=== PATIENT | male | born 1970 | race Caucasian/White ===

== ENCOUNTER → 2016-12-16 | Outpatient (CLI) | payer SELFPAY ==
--- NOTE | 2016-12-16 18:30 | US ---
EXAMINATION TYPE: US venous doppler duplex LE RT DATE OF EXAM: 12/16/2016 6:24 PM COMPARISON: NONE CLINICAL HISTORY: Lower Ext Pain and Swelling R22.41. Rt leg pain and swelling SIDE PERFORMED: Right VESSELS IMAGED: External Iliac Vein (EIV) Common Femoral Vein Deep Femoral Vein Greater Saphenous Vein * Femoral Vein Popliteal Vein Small Saphenous Vein * Proximal Calf Veins (* superficial vessels) No popliteal fossa lesion is seen. TECHNOLOGIST IMPRESSION: wnl Right Leg: Negative for DVT Results called to Salvador OLIVO at 's office at time of exam IMPRESSION: THIS EXAMINATION IS NEGATIVE FOR DVT WITHIN THE RIGHT LEG.
== END | disposition home or self-care (01) ==
LOC: RADUSMAIN 17:57
PROVIDERS: ATTEND Orthopaedic Surgery
DX: M79.661 Pain in right lower leg (principal); M79.89 Other specified soft tissue disorders

== ENCOUNTER 2018-12-16 15:15 | Emergency (ER) | payer BC ==
[2018-12-16] MEDS ORDERED: MORPHINE SULFATE 4 MG/ML SYRINGE IV STA (15:59)
[2018-12-16] MEDS ORDERED: ONDANSETRON ODT 8 MG TAB.RAPDIS PO STA (15:59)
[2018-12-16] MEDS ORDERED: SODIUM CHLORIDE 0.9% 1,000 ML IV STA ×2 (15:59→16:38)
[2018-12-16] MEDS ORDERED: ONDANSETRON 4 MG/2 ML VIAL IVP STA (16:03)
[2018-12-16 16:28] LABS: Basophils % (A) 0 %; Eosinophils # (A) 0.1 k/uL (0-0.7); Eosinophils % (A) 1 %; HCT 43.7 % (39.0-53.0); HGB 14.2 gm/dL (13.0-17.5); Lymphocytes % (A) 7 %; MCHC 32.4 g/dL (31.0-37.0); MCV 89.4 fL (80.0-100.0); Mean Platelet Volume 7.9; Monocytes # (A) 0.6 k/uL (0-1.0); Monocytes % (A) 4 %; Neutrophils # (A) 14.1 k/uL (1.3-7.7); Neutrophils % (A) 88 %; Platelet Count 256 k/uL (150-450); RBC 4.89 m/uL (4.30-5.90); RDW 12.8 % (11.5-15.5)
[2018-12-16 16:32] LABS: Appearance,Urine Turbid (Clear); Bacteria,Urine Rare /hpf; Bilirubin,Urine Negative (Negative); Blood,Urine Large (Negative); Budding Yeast,Urine Few /hpf; Color,Urine Dark Brown; Glucose,Urine (UA) Negative (Negative); Ketones,Urine 1+ (Negative); Leukocyte Esterase,Urine Small (Negative); Mucus,Urine Many /hpf; Nitrite,Urine Negative (Negative); PH, Urine 5.5 (5.0-8.0); Protein,Urine 2+ (Negative); RBC,Urine >182 /hpf (0-5); Specific Gravity,Urine 1.022 (1.001-1.035); Urobilinogen,Urine <2.0 mg/dL (<2.0); WBC,Urine 101 /hpf (0-5)
[2018-12-16 16:37] LABS: Albumin 4.3 g/dL (3.5-5.0); Calcium 9.7 mg/dL (8.4-10.2); Potassium 4.1 mmol/L (3.5-5.1); Total Bilirubin 1.6 mg/dL (0.2-1.3); Total Protein 7.6 g/dL (6.3-8.2)
[2018-12-16] MEDS ORDERED: cefTRIAXone 2,000 MG in SODIUM CHLORIDE 0.9% 100 ML IVPB STA (17:28)
--- NOTE | 2018-12-16 17:41 | ED ---
General Adult HPI - General Source: patient, RN notes reviewed Mode of arrival: ambulatory Limitations: no limitations <Imtiaz Morales - Last Filed: 12/16/18 19:28> <Joseph Peterson - Last Filed: 12/16/18 21:01> - General Chief complaint: Abdominal Pain Stated complaint: Lt flank pain Time Seen by Provider: 12/16/18 15:33 - History of Present Illness Initial comments: 48-year-old male with a past medical history of GERD presents to the emergency department for a chief complaint of left flank and abdominal pain 2 days. Patient states he initially thought he had the stomach flu as he has been nauseous and had diarrhea for about 4 days. Patient states he vomited once 4 days ago but has not vomited since. Patient states he now has left flank and left abdominal pain. He states he noticed blood in his urine earlier today. He denies any fevers at home but does admit to chills. He denies any history of kidney stones. He does admit to history of diverticulitis. Patient has no other complaints at this time including shortness of breath, chest pain, headache, or visual changes. (Imtiaz Morales) - Related Data Home Medications Medication Instructions Recorded Confirmed Esomeprazole Magnesium [Nexium 20 mg PO DAILY 11/02/16 12/16/18 24Hr] Acetaminophen Tab [Tylenol] 650 mg PO Q8H 12/16/18 12/16/18 Cyanocobalamin [Vitamin B-12] 500 mcg PO DAILY 12/16/18 12/16/18 Multivitamins, Thera [Multivitamin 1 tab PO DAILY 12/16/18 12/16/18 (formulary)] Previous Rx's Medication Instructions Recorded HYDROcodone/APAP 5-325MG [[place] 1 tab PO Q6HR PRN #12 tab 12/16/18 5-325] Ibuprofen [Motrin] 600 mg PO Q6HR PRN #20 tab 12/16/18 Levofloxacin [Levaquin] 500 mg PO DAILY 5 Days tab 12/16/18 Ondansetron [Zofran ODT] 4 mg PO Q8HR PRN #15 tab 12/16/18 Tamsulosin [Flomax] 0.4 mg PO DAILY #20 cap 12/16/18 Allergies Allergy/AdvReac Type Severity Reaction Status Date / Time No Known Allergies Allergy Verified 12/16/18 16:50 Review of Systems ROS Other: All systems not noted in ROS Statement are negative. <Imtiaz Morales P - Last Filed: 12/16/18 19:28> ROS Other: All systems not noted in ROS Statement are negative. <Joseph Peterson Joel - Last Filed: 12/16/18 21:01> ROS Statement: Those systems with pertinent positive or pertinent negative responses have been documented in the HPI. Past Medical History Past Medical History: GERD/Reflux History of Any Multi-Drug Resistant Organisms: None Reported Past Surgical History: Back Surgery Additional Past Surgical History / Comment(s): LUMBAR FUSION Past Psychological History: No Psychological Hx Reported Smoking Status: Never smoker Past Alcohol Use History: Occasional Past Drug Use History: None Reported <Imtiaz Morales P - Last Filed: 12/16/18 19:28> General Exam Limitations: no limitations General appearance: alert, in no apparent distress Head exam: Present: atraumatic, normocephalic, normal inspection Eye exam: Present: normal appearance, PERRL, EOMI. Absent: scleral icterus, conjunctival injection, periorbital swelling ENT exam: Present: normal exam, mucous membranes moist Neck exam: Present: normal inspection, full ROM. Absent: tenderness, meningismus, lymphadenopathy Respiratory exam: Present: normal lung sounds bilaterally. Absent: respiratory distress, wheezes, rales, rhonchi, stridor Cardiovascular Exam: Present: regular rate, normal rhythm, normal heart sounds. Absent: systolic murmur, diastolic murmur, rubs, gallop, clicks GI/Abdominal exam: Present: soft, tenderness (Tenderness to the left upper and lower quadrants with guarding present, no rebound. No tenderness in the right upper or lower quadrants.), guarding, normal bowel sounds. Absent: distended, rebound, rigid Neurological exam: Present: alert, oriented X3, CN II-XII intact Psychiatric exam: Present: normal affect, normal mood <Imtiaz Morales P - Last Filed: 12/16/18 19:28> Vital Signs 12/16/18 12/16/18 12/16/18 15:27 18:21 19:56 Temperature 97.4 F L 98.0 F Pulse Rate 76 70 61 Respiratory 16 18 18 Rate Blood Pressure 145/93 135/94 124/89 O2 Sat by Pulse 98 97 98 Oximetry Medical Decision Making - Lab Data Result diagrams: 12/16/18 16:09 12/16/18 16:09 <Imtiaz Morales - Last Filed: 12/16/18 19:28> - Lab Data Result diagrams: 12/16/18 16:09 12/16/18 16:09 <Joseph Peterson - Last Filed: 12/16/18 21:01> - Medical Decision Making 48-year-old male presents to the emergency department for a chief complaint of left flank and abdominal pain. Patient also complaining of hematuria. On exam patient does have tenderness noted of the left upper and lower quadrants as well as left CVA tenderness. Vitals within acceptable limits, patient is afebrile. CBC does show a white count of 16. Creatinine 1.27, patient given fluids. Urine does show over 182 red blood cells as well as 101 white blood cells. This was cultured. Patient was started on 2 g of Rocephin and 2 L of normal saline. CT did show a 5 mm obstructing calculus at the left UVJ with mild left-sided hydronephrosis. No diverticulitis or appendicitis. Discussed with patient that this is potentially something we could keep him in the hospital for IV antibiotics for however patient prefers to go home. At this time Dr. Peterson spoke with Dr. Duval who agrees for discharge home with Levaquin. Patient will follow-up with Dr. Duval tomorrow and strain his urine. Strict return parameters were discussed with this patient including fevers, chills, worsening pain, vomiting, or any other concerning symptoms ( Imtiaz Morales) Patient with hematuria, obstructing renal calculus. Patient evaluated, resting comfortably, vital signs stable, afebrile. He does have white blood cell count at 16. Urinalysis is significant for gross hematuria. Culture is obtained. Patient given IV antibiotics in the emergency department. He is given IV fluids and pain control. Reevaluation resting comfortably, no significant pain. I discussed the case with Dr. Duval, recommends fluoroquinolone, urine culture, and will see the patient as an outpatient. Patient will be present with nausea vomiting, fever, worsening pain. (Joseph Peterson) - Lab Data Lab Results 12/16/18 12/16/18 12/16/18 Range/Units 16:03 16:09 16:09 WBC 16.0 H (3.8-10.6) k/uL RBC 4.89 (4.30-5.90) m/uL Hgb 14.2 (13.0-17.5) gm/dL Hct 43.7 (39.0-53.0) % MCV 89.4 (80.0-100.0) fL MCH 29.0 (25.0-35.0) pg MCHC 32.4 (31.0-37.0) g/dL RDW 12.8 (11.5-15.5) % Plt Count 256 (150-450) k/uL Neutrophils % 88 % Lymphocytes % 7 % Monocytes % 4 % Eosinophils % 1 % Basophils % 0 % Neutrophils # 14.1 H (1.3-7.7) k/uL Lymphocytes # 1.0 (1.0-4.8) k/uL Monocytes # 0.6 (0-1.0) k/uL Eosinophils # 0.1 (0-0.7) k/uL Basophils # 0.0 (0-0.2) k/uL Sodium 136 L (137-145) mmol/L Potassium 4.1 (3.5-5.1) mmol/L Chloride 101 (98-107) mmol/L Carbon Dioxide 23 (22-30) mmol/L Anion Gap 12 mmol/L BUN 26 H (9-20) mg/dL Creatinine 1.27 H (0.66-1.25) mg/dL Est GFR (CKD-EPI)AfAm 77 (>60 ml/min/1.73 sqM) Est GFR (CKD-EPI)NonAf 66 (>60 ml/min/1.73 sqM) Glucose 113 H (74-99) mg/dL Plasma Lactic Acid Jean-Pierre (0.7-2.0) mmol/L Calcium 9.7 (8.4-10.2) mg/dL Total Bilirubin 1.6 H (0.2-1.3) mg/dL AST 19 (17-59) U/L ALT 31 (21-72) U/L Alkaline Phosphatase 70 (38-126) U/L Total Protein 7.6 (6.3-8.2) g/dL Albumin 4.3 (3.5-5.0) g/dL Amylase 42 (30-110) U/L Lipase 48 (23-300) U/L Urine Color Dark Brown Urine Appearance Turbid (Clear) Urine pH 5.5 (5.0-8.0) Ur Specific Powell 1.022 (1.001-1.035) Urine Protein 2+ H (Negative) Urine Glucose (UA) Negative (Negative) Urine Ketones 1+ H (Negative) Urine Blood Large H (Negative) Urine Nitrite Negative (Negative) Urine Bilirubin Negative (Negative) Urine Urobilinogen <2.0 (<2.0) mg/dL Ur Leukocyte Esterase Small H (Negative) Urine RBC >182 H (0-5) /hpf Urine WBC 101 H (0-5) /hpf Urine Bacteria Rare H (None) /hpf Urine Mucus Many H (None) /hpf Urine Yeast (Budding) Few H (None) /hpf 12/16/18 Range/Units 18:07 WBC (3.8-10.6) k/uL RBC (4.30-5.90) m/uL Hgb (13.0-17.5) gm/dL Hct (39.0-53.0) % MCV (80.0-100.0) fL MCH (25.0-35.0) pg MCHC (31.0-37.0) g/dL RDW (11.5-15.5) % Plt Count (150-450) k/uL Neutrophils % % Lymphocytes % % Monocytes % % Eosinophils % % Basophils % % Neutrophils # (1.3-7.7) k/uL Lymphocytes # (1.0-4.8) k/uL Monocytes # (0-1.0) k/uL Eosinophils # (0-0.7) k/uL Basophils # (0-0.2) k/uL Sodium (137-145) mmol/L Potassium (3.5-5.1) mmol/L Chloride (98-107) mmol/L Carbon Dioxide (22-30) mmol/L Anion Gap mmol/L BUN (9-20) mg/dL Creatinine (0.66-1.25) mg/dL Est GFR (CKD-EPI)AfAm (>60 ml/min/1.73 sqM) Est GFR (CKD-EPI)NonAf (>60 ml/min/1.73 sqM) Glucose (74-99) mg/dL Plasma Lactic Acid Jean-Pierre 1.0 (0.7-2.0) mmol/L Calcium (8.4-10.2) mg/dL Total Bilirubin (0.2-1.3) mg/dL AST (17-59) U/L ALT (21-72) U/L Alkaline Phosphatase (38-126) U/L Total Protein (6.3-8.2) g/dL Albumin (3.5-5.0) g/dL Amylase (30-110) U/L Lipase (23-300) U/L Urine Color Urine Appearance (Clear) Urine pH (5.0-8.0) Ur Specific Powell (1.001-1.035) Urine Protein (Negative) Urine Glucose (UA) (Negative) Urine Ketones (Negative) Urine Blood (Negative) Urine Nitrite (Negative) Urine Bilirubin (Negative) Urine Urobilinogen (<2.0) mg/dL Ur Leukocyte Esterase (Negative) Urine RBC (0-5) /hpf Urine WBC (0-5) /hpf Urine Bacteria (None) /hpf Urine Mucus (None) /hpf Urine Yeast (Budding) (None) /hpf Disposition Is patient prescribed a controlled substance at d/c from ED?: Yes When asked, does pt state using other controlled substances?: No If prescribed controlled substance>3 days was MAPS reviewed?: Prescribed <3 Days If opioid is for acute pain is fill amount 7 days or less?: Yes If Rx opioid, was Start Talking consent form obtained?: Yes Time of Disposition: 19:34 <Imtiaz Morales P - Last Filed: 12/16/18 19:28> <Joseph Peterson - Last Filed: 12/16/18 21:01> Clinical Impression: Ureterolithiasis, Urinary tract infection Disposition: HOME SELF-CARE Condition: Good Instructions (If sedation given, give patient instructions): Kidney Stones (ED) , Urinary Tract Infection in Men (ED) Additional Instructions: Please take prescriptions as directed. Please follow-up with Dr. Duval tomorrow. Please strain the urine. Please return to the emergency department if you have any worsening symptoms such as fevers, vomiting, worsening pain or any other concerning symptoms. Prescriptions: HYDROcodone/APAP 5-325MG [[place] 5-325] 1 tab PO Q6HR PRN #12 tab PRN Reason: Pain Ibuprofen [Motrin] 600 mg PO Q6HR PRN #20 tab PRN Reason: Pain Levofloxacin [Levaquin] 500 mg PO DAILY 5 Days tab Ondansetron [Zofran ODT] 4 mg PO Q8HR PRN #15 tab PRN Reason: Nausea Tamsulosin [Flomax] 0.4 mg PO DAILY #20 cap Referrals: Ed Duval MD [STAFF PHYSICIAN] - 1-2 days
--- NOTE | 2018-12-16 18:08 | CT ---
EXAMINATION TYPE: CT abdomen pelvis w con DATE OF EXAM: 12/16/2018 COMPARISON: None HISTORY: Left side flank and abdominal pain. CT DLP: 1047.4 mGycm Automated exposure control for dose reduction was used. TECHNIQUE: Helical acquisition of images was performed from the lung bases through the pelvis. CONTRAST: Performed without Oral Contrast and with IV Contrast, patient injected with 100ml mL of Isovue 300. FINDINGS: There is some patchy airspace nodular and reticular infiltrate in the left lower lobe. There is moder ate size hiatal hernia. Heart size is normal. There is no pericardial effusion. There is no pleural e ffusion. The liver spleen pancreas gallbladder appear normal. Bile ducts are not dilated. There is no adrenal mass. Kidneys show satisfactory contrast opacification. There is left-sided hydro nephrosis and hydroureter. There is 5 mm obstructing calculus at the left ureteral vesicle junction. There is 6 mm calculus lateral left kidney. There is 1 cm cortical cyst lower pole left kidney. There is 2 cm cortical cyst anterior right kidney. There is no retroperitoneal adenopathy. There is no ascites. Appendix appears normal. There are numer ous diverticula in the sigmoid colon. There is no mesenteric edema. Latter distends smoothly. There i s prostatic calcification. There is no inguinal hernia. There is no free fluid in the pelvis. There i s no sign of free air. IMPRESSION: OBSTRUCTING CALCULUS AT THE LEFT URETEROVESICAL JUNCTION. MILD LEFT-SIDED HYDRONEPHROSIS. COLONIC DIV ERTICULOSIS WITHOUT DIVERTICULITIS. NORMAL APPENDIX.
[2018-12-16 18:22] VITALS: RESP 18
[2018-12-16] MEDS ORDERED: KETOROLAC 30 MG/ML 1 ML VIAL IVP STA (18:27)
--- NOTE | 2018-12-16 19:11 | XR ---
EXAMINATION TYPE: XR KUB DATE OF EXAM: 12/16/2018 COMPARISON: NONE HISTORY: Left flank pain TECHNIQUE: 2 views FINDINGS: There is no sign of intestinal obstruction or pneumoperitoneum. Fecal pattern is normal. Th ere is IV contrast in the left renal collecting system which is slightly dilated. There is posterior fusion surgery in the lower lumbar spine. There is no evidence of a mass. Lung bases appear clear of consolidation. IMPRESSION: Left-sided hydronephrosis and hydroureter unchanged compared to CT scan 2 hours ago.
[2018-12-16 19:57] VITALS: BP 124/89; PULSE 61; TEMP 98
== END 2018-12-16 19:57 | disposition home or self-care (01) ==
LOC: EC 15:15
DX: N13.2 Hydronephrosis with renal and ureteral calculous obstruction (principal); N39.0 Urinary tract infection, site not specified; K21.9 Gastro-esophageal reflux disease without esophagitis; Z79.899 Other long term (current) drug therapy; Z53.8 Procedure and treatment not carried out for other reasons
CPT/HCPCS: 36415; 80053; 82150; 83605; 83690; 85025; 81001; 87040; 87086; 74018; 74177; 99284; 96365; 96375 ×3; 96361 ×2; J2270; J2405; J0696; J1885; Q9967

== ENCOUNTER → 2021-09-29 | Outpatient (CLI) | payer BC ==
[2021-09-29 11:47] LABS: Basophils # (A) 0.1 k/uL (0-0.2); Basophils % (A) 1 %; Eosinophils # (A) 0.2 k/uL (0-0.7); Eosinophils % (A) 3 %; HCT 45.5 % (39.0-53.0); HGB 15.5 gm/dL (13.0-17.5); Lymphocytes # (A) 1.8 k/uL (1.0-4.8); Lymphocytes % (A) 23 %; MCH 31.8 pg (25.0-35.0); MCHC 34.1 g/dL (31.0-37.0); MCV 93.1 fL (80.0-100.0); Mean Platelet Volume 8.9; Monocytes # (A) 0.6 k/uL (0-1.0); Monocytes % (A) 7 %; Neutrophils # (A) 5.1 k/uL (1.3-7.7); Neutrophils % (A) 65 %; Platelet Count 279 k/uL (150-450); RBC 4.89 m/uL (4.30-5.90); RDW 12.5 % (11.5-15.5); WBC 7.8 k/uL (3.8-10.6)
== END | disposition home or self-care (01) ==
LOC: LABPAT 09:25
PROVIDERS: ATTEND Orthopaedic Surgery Hand Surgery
DX: Z01.818 Encounter for other preprocedural examination (principal); S46.299A Other injury of muscle, fascia and tendon of other parts of biceps, unspecified arm, initial encounter; R00.1 Bradycardia, unspecified; X58.XXXA Exposure to other specified factors, initial encounter
CPT/HCPCS: 36415; 80051; 85025; 93005

== ENCOUNTER 2021-10-01 09:55 | Day surgery (SDC) | payer BC, MEDICAID ==
[2021-09-30 09:45] VITALS: BMI 26.9
--- NOTE | 2021-09-30 22:09 | P.HPOR ---
History of Present Illness H&P Date: 09/30/21 Chief Complaint: Right distal biceps tendon tear Age: 51 year Height: 6'2" Weight: 210 lbs BMI: 26.96 kg/m2 Subjective: This is a 51 year old male that presents today for initial evaluation regarding a right elbow injury that occurred on 09-26-21. Patient was picking up a car part at home in his garage and felt a pop in the right arm and had immediate pain and swelling in the anterior portion of his elbow. He was recently seen in February for right distal biceps tendonitis and a MRI at that time revealed no evidence of complete tearing but inflammation around the insertion of the biceps tendon. He denies any prior injury to this extremity in the past. He has some occasional paresthesias in the volar, radial forearm since the incident but has no other complaints at this time. Physical Examination: RUE: AIN/PIN/Radial/Ulnar/Median motor intact. Radial/Ulnar/Median SILT. 2+/4 Radial/Ulnar pulses palpated. Sensation diminished in LABCN distribution with light touch. Positive hook test. TTP over antecubital fossa. Pain with resisted elbow flexion/supination. Imaging: X-Rays of the left elbow demonstrate no acute fracture/dislocation. Impression: 1.) Right distal biceps tendon avulsion Plan: Diagnosis and treatment options were discussed with the patient. On exam today he appears to have signs and symptoms of a right distal biceps tendon avulsion. Risks and benefits of operative vs non-operative treatment were discussed with the patient and he would like to proceed with surgical intervention. I explained he will likely be immobilized for roughly 2 weeks post operatively and PT will be initiated at that time with gradual advancement of active and passive ROM. The patient was agreeable with this plan of action. MRI will be ordered urgently to determine complete vs partial tearing and amount of retraction for surgical planning. Pre-operative labs and EKG will be ordered. We will plan for right distal biceps tendon avulsion repair. All questions were answered. -Gerber Otto DO Orthopedic Hand/Upper Extremity Surgeon Past Medical History Past Medical History: GERD/Reflux Additional Past Medical History / Comment(s): Hx kidney stones. History of Any Multi-Drug Resistant Organisms: None Reported Past Surgical History: Back Surgery, Orthopedic Surgery Additional Past Surgical History / Comment(s): LUMBAR FUSION, right shoulder arthroscopy, right knee arthroscopy. Past Anesthesia/Blood Transfusion Reactions: No Reported Reaction, Postoperative Nausea & Vomiting (PONV) Past Psychological History: No Psychological Hx Reported Smoking Status: Never smoker Past Alcohol Use History: Rare Past Drug Use History: Marijuana Additional Drug Use History / Comment(s): Occasional Marijuana use. Aware no use 24 hrs prior to procedure. - Past Family History Mother Family Medical History: No Reported History Medications and Allergies Home Medications Medication Instructions Recorded Confirmed Type Multivitamins, Thera [Multivitamin 1 tab PO DAILY 12/16/18 09/30/21 History (formulary)] Pantoprazole Sodium [Protonix] 40 mg PO QAM 03/29/19 09/30/21 History Acetaminophen [Tylenol] 1,000 mg PO DAILY 09/30/21 09/30/21 History Allergies Allergy/AdvReac Type Severity Reaction Status Date / Time No Known Allergies Allergy Verified 09/30/21 09:46 Physical Examination Osteopathic Statement: *. No significant issues noted on an osteopathic structural exam other than those noted in the History and Physical/Consult.
[~2021-10-01 09:55] MED LIST: DEXAMETHASONE SOD PHOSPHATE 4 MG/ML 1 ML VIAL IV ONE; HYDROmorphone 0.5 MG/0.5 ML SYRINGE IVP PRN; LACTATED RINGERS 1,000 ML IV SCH; LIDOCAINE 1% (10MG/ML) FOR IV START INTRADERMA PRN; MIDAZOLAM 2 MG/2 ML VIAL IV PRN; ONDANSETRON 4 MG/2 ML VIAL IVP ONE
[2021-10-01] MEDS ORDERED: MIDAZOLAM 2 MG/2 ML VIAL IVP ONE (12:08)
[2021-10-01] MEDS ORDERED: SUCCINYLCHOLINE CHLORIDE 100 MG/5 ML SYR IV ONE (12:53)
[2021-10-01] MEDS ORDERED: PROPOFOL 10 MG/ML 20 ML VIAL IV ONE (12:53)
[2021-10-01] MEDS ORDERED: fentaNYL (PF) 50 MCG/ML 2 ML AMP ONE (12:53)
[2021-10-01] MEDS ORDERED: LIDOCAINE 1% INJ 10MG/ML (20 ML MDV) ONE (12:53)
[2021-10-01] MEDS ORDERED: ROPIVACAINE 5 MG/ML 30 ML VIAL ONE (12:53)
[2021-10-01] MEDS ORDERED: SCOPOLAMINE 1.5MG/72HR PATCH TRANSDERM ONE (12:54)
--- NOTE | 2021-10-01 13:24 | P.ANPRN ---
Procedure Note - Anesthesia - Nerve Block Performed Right Supraclavicular Time Out Performed: Yes (12:00) Date of Procedure: 10/01/21 Procedure Start Time: 12:00 Procedure Stop Time: 12:13 Location of Patient: PreOp Indication: Acute Post-Operative Pain, Requested by Surgeon (Dr Otto) Sedation Type: Sedate with meaningful contact maintained Preparation: Sterile Prep Position: Supine Catheter: None Needle Types: Pajunk Needle Gauge: Other (see comment) (22g) Ultrasound used to visualize needle placement: Yes Ultrasound used to observe medication spread: Yes Injectate: 0.5% Ropivacaine (see comment for volume) (20cc) Blood Aspirated: No Pain Paresthesia on Injection Noted: No Resistance on Injection: Normal Image Stored and Saved: Yes Events: Uneventful and Well Tolerated
[2021-10-01] MEDS ORDERED: ceFAZolin 1,000 MG in SODIUM CHLORIDE 0.9% 1,000 ML IRRIGATION ONE (13:25)
[2021-10-01] MEDS ORDERED: LACTATED RINGERS 1,000 ML IV ONE (14:51)
[2021-10-01 15:06] VITALS: TEMP 97
[2021-10-01 15:44] VITALS: RESP 16
[2021-10-01 16:00] VITALS: PULSE 68
[2021-10-01 16:18] VITALS: BP 125/83
--- NOTE | 2021-10-01 19:50 | P.OP ---
Date of Procedure: 10/01/21 Preoperative Diagnosis: Right distal biceps tendon avulsion Postoperative Diagnosis: Right distal biceps tendon avulsion Procedure(s) Performed: 1.) Right distal biceps tendon repair utilizing arthrex distal biceps button with tension-slide technique Implants: 1.) Arthrex distal biceps cortical button Anesthesia: regional Surgeon: Gerber Otto Gamma Ray Operator #1: Garrick Dorsey Estimated Blood Loss (ml): 10 Pathology: none sent Condition: stable Disposition: PACU Operative Findings: This is a 51 year old male with a history of a right distal biceps tendon rupture that occurred while lifting a tire in his garage. He presents today for right distal biceps tendon avulsion repair. Risks and benefits of surgery were discussed with the patient including bleeding, damage to surrounding tissue, infection, paresthesais, need for further surgery as well as risks of anesthesia including pulmonary embolism and even and the patient wished to proceed with surgical intervention. The patients was seen in the pre-operative area by myself. Consent and H&P were completed and updated. The correct extremity was marked in the pre-operative area by myself and all other questions were answered. Patient received an upper extremity nerve block by the department of anesthesia. He then was brought to the operating room by the department of anesthesia. He was transferred to the operative table and a rolling hand table was brought to the side of the operative extremity. The patient was then drifted off to sleep by the department of anesthesia. A nonsterile tourniquet was then applied to the operative extremity and the right upper extremity was then prepped and draped in normal sterile fashion. Pre-operative time out was performed indicating the correct patient, procedure and laterality. All in the room agreed. Pre-operative antibiotics were given prior to skin incision. The operative extremity was the exsanguinated with an esmarch bandage and the tourniquet was inflated to 250mmHg. 15 blade scalpel was used to make a 4cm transverse incision 3 cm distal to the anterior elbow antecubital fossa crease. Blunt dissection was then performed in subcutaneous tissues, retractors were placed taking care to not put excessive force laterally to avoid pressure on the LABCN. Seroma was identified and the distal end of the biceps tendon was identified just proximal to the bicipital grove with adhesions formed to the surrounding aline and vascular structures which were carefully dissected, the end of the tendon was then grasped with an Aimee clamp. Edges were trimmed of degenerative tissue to create a more profiled distal tip. A number 2 looped fiberwire was then used to sequentially grasp the tendon starting 2.5cm proximal to the distal end. The last stitch was placed in a locking fashion. Tendon sizer was then utilized the the distal tendon was able to fit through a 7mm hole. Attention was then brought back to the antecubital fossa and deeper dissection was taken down to the radial tuberosity. Tendon rem nants were debrided carefully with rongeur. The forearm was then maximally supinated to reveal the bicipital tuberosity on the radius in order to move the PIN nerve as far radial as possible. A 3.2mm guide pin was then inserted bicortically into the radial tuberosity aimed 30 degrees ulnarly to avoid PIN damage. Correct placement was then confirmed on flouroscopy. A 8mm drill was then used to drill the near cortex only. The wound was then copiously irrigated. The free ends of the suture where then passed through the arthrex cortical button to engage the tension slide mechanism. Cortical button was placed into the button inserted and inserted through the drill hole and deployed. Tension was then applied to snug the cortical button flush against the dorsal cortex. The free suture limbs were then tensioned to fully dock the tendon in the bone tunnel. A free needle was then used to pass one limb through the tendon and a knot was tied. Mini C arm was then used to confirm that the button had flipped and was lying flush against the cortex. The wound was then irrigated. Closure was performed with interrupted 4-0 monocryl suture followed by a running subcuticular suture. Exofin glue was then applied to the wound. 4x4s, webril and a posterior splint with the elbow in slight flexion was applied. The tourniquet was let down and the hand had immediate normal perfusion. The patient was then woken and transferred to PACU in stable condition. Disposition: The patient is to remain in the post operative splint until first follow up in 10-14 days. We will transition to a sling at that time an initiate active and active assist range of motion with no lifting over a coffee cup for the first 6 weeks. At 6 weeks we will start gradual strengthening. -Gerber Otto DO Orthopedic Hand/Upper Extremity
== END 2021-10-01 10:26 | disposition home or self-care (01) ==
LOC: OR 09:55
PROVIDERS: ATTEND Orthopaedic Surgery Hand Surgery
DX: S46.291A Other injury of muscle, fascia and tendon of other parts of biceps, right arm, initial encounter (principal)
CPT/HCPCS: 13101; 13121; 13131; 64999; 76942; C1713; J2250; J1100; J0690 ×2; J2405; J2001; J3010; J2795; J0330; J2704

== ENCOUNTER 2023-04-12 07:19 | Emergency (ER) | payer MEDICAID ==
--- NOTE | 2023-04-12 08:19 | ED ---
General Adult HPI - General Chief complaint: Chest Pain Stated complaint: chest pain Time Seen by Provider: 04/12/23 07:22 Source: patient Mode of arrival: ambulatory Limitations: no limitations - History of Present Illness Initial comments: Dictation was produced using [employer] dictation software. please excuse any grammatical, word or spelling errors. Chief Complaint: 52-year-old male presents emergency Department with cough History of Present Illness: 52-year-old male he is having violent coughing for the last couple days. He was sick one week ago started feeling Better and his symptoms started to get worse again. Patient states that he has 30 chest pain located to his lower anterior chest. It's worse and takes a deep breath. Especially worse when he coughs. Patient did notice some streaks of blood whenever he coughs. States that experience intermittent and mild. No nausea vomiting. Has no constitutional symptoms. The ROS documented in this emergency department record has been reviewed and confirmed by me. Those systems with pertinent positive or negative responses have been documented in the HPI. All other systems are other negative and/or noncontributory. - Related Data Home Medications Medication Instructions Recorded Confirmed Multivitamins, Thera [Multivitamin 1 tab PO DAILY 12/16/18 10/01/21 (formulary)] Pantoprazole Sodium [Protonix] 40 mg PO QAM 03/29/19 10/01/21 Acetaminophen [Tylenol] 1,000 mg PO DAILY 09/30/21 10/01/21 Previous Rx's Medication Instructions Recorded HYDROcodone/APAP 5-325MG [[place] 2 tab PO Q6HR PRN 3 Days #24 tab 10/01/21 5-325] Albuterol Nebulized (Conc) 2.5 mg INHALATION Q6H 6 Days #75 ml 04/12/23 [Ventolin Nebulized (Conc)] Azithromycin [Zithromax Z Pack] 1 tab PO DIRECTED #6 tab 04/12/23 Benzonatate [Tessalon Perle] 100 mg PO TID PRN #24 capsule 04/12/23 HYDROcodone/APAP 5-325MG [[place] 1 tab PO Q6HR PRN 3 Days #12 tab 04/12/23 5-325] Allergies Allergy/AdvReac Type Severity Reaction Status Date / Time No Known Allergies Allergy Verified 04/12/23 07:34 Review of Systems ROS Statement: Those systems with pertinent positive or pertinent negative responses have been documented in the HPI. ROS Other: All systems not noted in ROS Statement are negative. Past Medical History Past Medical History: GERD/Reflux Additional Past Medical History / Comment(s): Hx kidney stones. History of Any Multi-Drug Resistant Organisms: None Reported Past Surgical History: Back Surgery, Orthopedic Surgery Additional Past Surgical History / Comment(s): LUMBAR FUSION, right shoulder arthroscopy, right knee arthroscopy. Past Anesthesia/Blood Transfusion Reactions: No Reported Reaction, Postoperative Nausea & Vomiting (PONV) Past Psychological History: No Psychological Hx Reported Smoking Status: Never smoker Past Alcohol Use History: Rare Past Drug Use History: Marijuana - Past Family History Mother Family Medical History: No Reported History General Exam - General Exam Comments Initial Comments: PHYSICAL EXAM: General Impression: Alert and oriented x3, not in acute distress HEENT: Normocephalic atraumatic, extra-ocular movements intact, pupils equal and reactive to light bilaterally, mucous membranes moist. Cardiovascular: Heart regular rate and rhythm Chest: Able to complete full sentences, no retractions, no tachypnea Abdomen: abdomen soft, non-tender, non-distended, no organomegaly Musculoskeletal: Pulses present and equal in all extremities, no peripheral edema Motor: no focal deficits noted Neurological: CN II-XII grossly intact, no focal motor or sensory deficits noted Skin: Intact with no visualized rashes Psych: Normal affect and mood Limitations: no limitations Course Vital Signs 04/12/23 04/12/23 04/12/23 07:31 07:34 09:32 Temperature 99.7 F H Pulse Rate 118 H 91 Respiratory 26 H 26 H 24 Rate Blood Pressure 128/77 139/85 O2 Sat by Pulse 98 100 Oximetry - Reevaluation(s) Reevaluation #1: 04/12/23 08:12 Patient seen and evaluated in ER room #1. triavital signs reviewed on be within normal limits. Resting comfortably showing no signs of acute distress. Patient has clear lungs auscultation of lungs. Is not actively coughing. 04/12/23 08:12 Reevaluation #2: 04/12/23 9:45 Patient evaluated at the bedside. States that he still has persistent right- sided chest pain. He is actively coughing. Decision was made to give patient IV antibiotics and draw basic blood work. White blood cell count 26.1. Metabolic panel within acceptable limits. 4 panel viral PCR is negative. Reevaluation #3: 04/12/23 10:24 Patient ordered for breathing treatment. States that it did improve his symptoms. is at the bedside updated on patient's clinical presentation and labs and imaging EKG Findings - EKG Comments: EKG Findings:: My EKG interpretation: Ventricular rate 98, sinus rhythm,. 129, QRS 90, QTC 386. No ME prolongation, no QTC prolongation, no ST or T-wave changes noted. Overall, this EKG is unremarkable Procedures - Sepsis Sepsis Focused Exam #1 Time Sepsis Criteria Met: 10:08 Sepsis Focused Exam Date: 04/12/23 Sepsis Focused Exam Time: 10:09 Sepsis Focused Exam Complete: Yes Vital Signs & RN Notes Reviewed: Yes Capillary Refill: < 2 Seconds: Fingers, Toes Peripheral Pulses: Normal: Radial (R), Radial (L), Posterior Tibialis (R), Posterior Tibialis (L), Dorsalis Pedis (R), Dorsalis Pedis (L) Skin Color: Normal for Patient Respiratory Exam: normal lung sounds Cardiovascular Exam: regular rate, normal rhythm Medical Decision Making - Medical Decision Making Was pt. sent in by a medical professional or institution (, PA, STEEL FABRICATOR, urgent care, hospital, or jail...) When possible be specific @ -No Did you speak to anyone other than the patient for history (EMS, parent, family, police, friend...)? What history was obtained from this source @ - at the bedside who states the patient has had a cough Did you review nursing and triage notes (agree or disagree)? Why? @ -I reviewed and agree with nursing and triage notes Were old charts reviewed (outside hosp., previous admission, EMS record, old EKG, old radiological studies, urgent care reports/EKG's, jail records)? Report findings @ -No old charts were reviewed Differential Diagnosis (chest pain, altered mental status, abdominal pain women, abdominal pain men, vaginal bleeding, musculoskeletal, weakness, fever, dyspnea, syncope, headache, dizziness, GI bleed, back pain, seizure, CVA, palpatations, mental health)? @ -Differential Chest Pain: Stable Angina, Unstable Angina, STEMI, NSTEMI Aortic Dissection, Pneumothorax, Musculoskeletal, Esophageal Spasm GERD, Cholecystitis, Pancreatitis, Zoster, this is not meant to be an all-inclusive list. EKG interpreted by me (3pts min.). @ -See above X-rays interpreted by me (1pt min.). @ -Right middle lobar infiltrate CT interpreted by me (1pt min.). @ -None done U/S interpreted by me (1pt. min.). @ -None done What testing was considered but not performed or refused? (CT, X-rays, U/S, labs)? Why? @ -None What meds were considered but not given or refused? Why? @ -None Did you discuss the management of the patient with other professionals (professionals i.e. DrDeon, PA, STEEL FABRICATOR, lab, RT, psych nurse, social science professor, manager lab, teacher, chief financial officer, caser)? Give summary @ -No Was smoking cessation discussed for >3mins.? @ -No Was critical care preformed (if so, how long)? @ -No Were there social determinants of health that impacted care today? How? (Homeles sness, low income, unemployed, alcoholism, drug addiction, transportation, low edu. Level, literacy, decrease access to med. care, senior living, rehab)? @ -No Was there de-escalation of care discussed even if they declined (Discuss DNR or withdrawal of care, Hospice)? DNR status @ -No What co-morbidities impacted this encounter? (DM, HTN, Smoking, COPD, CAD, Cancer, CVA, ARF, Chemo, Hep., AIDS, mental health diagnosis, sleep apnea, morbid obesity)? @ -None Was patient admitted / discharged? Hospital course, mention meds given and route, prescriptions, significant lab abnormalities, going to OR and other pertinent info. @ -52-year-old male with no significant comorbidities presents emergency Department with cough and chest pain. His pain is atypical. X-rays show pneumonia. Labs drawn showing leukocytosis 26.1. Rest was within acceptable limits. Patient given a dose of IV antibiotics and albuterol treatment. Disposition options were discussed. Agreeable for discharge. at the bedside works with our local pulmonology group. States that she will make a appointment for patient tomorrow with flexible babysitter. Return precautions discussed. Undiagnosed new problem with uncertain prognosis? @ -No Drug Therapy requiring intensive monitoring for toxicity (Heparin, Nitro, Insulin, Cardizem)? @ -No Were any procedures done? @ -No Diagnosis/symptom? Acute, or Chronic, or Acute on Chronic? Uncomplicated (without systemic symptoms) or Complicated (systemic symptoms)? @ -1. Acute uncomplicated Pneumonia Side effects of treatment? @ -No Exacerbation, Progression, or Severe Exacerbation? @ -No Poses a threat to life or bodily function? How? (Chest pain, [place], [place], pneumonia, PE, COPD, DKA, ARF, appy, cholecystitis, CVA, Diverticulitis, Homicidal, Suicidal, threat to staff... and all critical care pts) @ -yes - Lab Data Result diagrams: 04/12/23 09:26 04/12/23 09:26 Lab Results 04/12/23 04/12/23 04/12/23 Range/Units 07:50 09:26 09:26 WBC 26.1 H (3.8-10.6) k/uL RBC 4.48 (4.30-5.90) m/uL Hgb 13.3 (13.0-17.5) gm/dL Hct 39.5 (39.0-53.0) % MCV 88.1 (80.0-100.0) fL MCH 29.7 (25.0-35.0) pg MCHC 33.7 (31.0-37.0) g/dL RDW 12.8 (11.5-15.5) % Plt Count 349 (150-450) k/uL MPV 8.9 Neutrophils % 89 % Lymphocytes % 5 % Monocytes % 5 % Eosinophils % 0 % Basophils % 0 % Neutrophils # 23.2 H (1.3-7.7) k/uL Lymphocytes # 1.2 (1.0-4.8) k/uL Monocytes # 1.2 H (0-1.0) k/uL Eosinophils # 0.1 (0-0.7) k/uL Basophils # 0.0 (0-0.2) k/uL Sodium 136 L (137-145) mmol/L Potassium 4.3 (3.5-5.1) mmol/L Chloride 100 (98-107) mmol/L Carbon Dioxide 26 (22-30) mmol/L Anion Gap 10 mmol/L BUN 17 (9-20) mg/dL Creatinine 1.24 (0.66-1.25) mg/dL Est GFR (CKD-EPI)AfAm 77 (>60 ml/min/1.73 sqM) Est GFR (CKD-EPI)NonAf 67 (>60 ml/min/1.73 sqM) Glucose 133 H (74-99) mg/dL Calcium 9.4 (8.4-10.2) mg/dL Influenza Type A (PCR) Not Detected (Not Detectd) Influenza Type B (PCR) Not Detected (Not Detectd) RSV (PCR) Not Detected (Not Detectd) SARS-CoV-2 (PCR) Not Detected (Not Detectd) Disposition Clinical Impression: Pneumonia Disposition: HOME SELF-CARE Condition: Fair Instructions (If sedation given, give patient instructions): Bacterial Pneumonia (ED) Prescriptions: HYDROcodone/APAP 5-325MG [Hays 5-325] 1 tab PO Q6HR PRN 3 Days #12 tab PRN Reason: Severe Pain Benzonatate [Tessalon Perle] 100 mg PO TID PRN #24 capsule PRN Reason: Cough Albuterol Nebulized (Conc) [Ventolin Nebulized (Conc)] 2.5 mg INHALATION Q6H 6 Days #75 ml Azithromycin [Zithromax Z Pack] 1 tab PO DIRECTED #6 tab Is patient prescribed a controlled substance at d/c from ED?: Yes If prescribed controlled substance>3 days was MAPS reviewed?: Prescribed <3 Days Referrals: Ramón Santo DO [Primary Care Provider] - 1-2 days Time of Disposition: 10:29
--- NOTE | 2023-04-12 08:22 | XR ---
EXAMINATION TYPE: XR chest 2V DATE OF EXAM: 04/12/2023 COMPARISON: NONE HISTORY: Shortness of breath TECHNIQUE: Frontal and lateral views of the chest are obtained. FINDINGS: Scattered senescent parenchymal changes noted. Hyperinflation compatible with COPD. There is right middle lobe infiltrate noted felt to reflect pneumonia until proven otherwise. Correla te clinically and progress studies until resolution advised. Heart size is stable. Mediastinal structures are stable and grossly unremarkable. No evidence for hilar prominence. Degenerative changes dorsal spine. IMPRESSION: 1.There is right middle lobe infiltrate noted felt to reflect pneumonia until proven otherwise. Corre late clinically and progress studies until resolution advised.
[2023-04-12] MEDS ORDERED: cefTRIAXone IN SWFI 1,000 MG/10 ML SYRINGE IVP STA (09:02)
[2023-04-12] MEDS ORDERED: HYDROcodone/APAP 5-325MG 1 EACH TAB PO STA (09:02)
[2023-04-12] MEDS ORDERED: AZITHROMYCIN 500 MG in SODIUM CHLORIDE 0.9% 250 ML IVPB STA (09:02)
[2023-04-12] MEDS ORDERED: ALBUTEROL HFA INHALER INHALATION STA (09:03)
[2023-04-12 09:49] LABS: Basophils % (A) 0 %; Eosinophils # (A) 0.1 k/uL (0-0.7); Eosinophils % (A) 0 %; HCT 39.5 % (39.0-53.0); HGB 13.3 gm/dL (13.0-17.5); Lymphocytes # (A) 1.2 k/uL (1.0-4.8); Lymphocytes % (A) 5 %; MCH 29.7 pg (25.0-35.0); MCHC 33.7 g/dL (31.0-37.0); MCV 88.1 fL (80.0-100.0); Mean Platelet Volume 8.9; Monocytes # (A) 1.2 k/uL (0-1.0); Monocytes % (A) 5 %; Neutrophils # (A) 23.2 k/uL (1.3-7.7); Neutrophils % (A) 89 %; Platelet Count 349 k/uL (150-450); RBC 4.48 m/uL (4.30-5.90); RDW 12.8 % (11.5-15.5); WBC 26.1 k/uL (3.8-10.6)
[2023-04-12 10:01] LABS: Calcium 9.4 mg/dL (8.4-10.2); Potassium 4.3 mmol/L (3.5-5.1)
[2023-04-12 10:50] VITALS: BP 132/81; PULSE 92; RESP 18; TEMP 99.2
== END 2023-04-12 10:50 | disposition home or self-care (01) ==
LOC: EC 07:19
DX: J18.9 Pneumonia, unspecified organism (principal); K21.9 Gastro-esophageal reflux disease without esophagitis; Z79.899 Other long term (current) drug therapy; Z20.822 Contact with and (suspected) exposure to COVID-19
CPT/HCPCS: 36415; 94640; 93005; 80048; 85025; 87636; 71046; 99285; 96365; 96375; J0456; J0696

== ENCOUNTER 2023-04-14 14:36 | Inpatient (IN) | payer MEDICAID ==
[2023-04-14] MEDS ORDERED: ACETAMINOPHEN TAB 500 MG TAB PO STA (15:50)
--- NOTE | 2023-04-14 15:55 | ED ---
General Adult HPI - General Chief complaint: Upper Respiratory Infection Stated complaint: mass right lung Time Seen by Provider: 04/14/23 15:40 Source: patient, RN notes reviewed, old records reviewed Mode of arrival: ambulatory Limitations: no limitations - History of Present Illness Initial comments: This is a 52-year-old male who presents emergency Department complaining that he was diagnosed with pneumonia on Wednesday and he saw Dr. Artis today they did a CAT scan showed a mass versus pneumonia according to the patient's family Dr. Artis wanted the patient admitted for pneumonia he was more suspicious of a serious pneumonia than EMS. Patient has never been a smoker. Patient states he continues to cough and have some chills. Patient states he also remained short of breath. Patient denies any lightheadedness or dizziness patient denies headache patient denies numbness weakness. Patient denies any abdominal pain - Related Data Home Medications Medication Instructions Recorded Confirmed Pantoprazole Sodium [Protonix] 40 mg PO QAM 03/29/19 04/14/23 Albuterol Nebulized [Ventolin 2.5 mg INHALATION RT-Q6H 04/14/23 04/14/23 Nebulized] Previous Rx's Medication Instructions Recorded Azithromycin [Zithromax Z Pack] 1 tab PO DIRECTED #6 tab 04/12/23 Benzonatate [Tessalon Perle] 100 mg PO TID PRN #24 capsule 04/12/23 Allergies Allergy/AdvReac Type Severity Reaction Status Date / Time No Known Allergies Allergy Verified 04/14/23 17:00 Review of Systems ROS Statement: Those systems with pertinent positive or pertinent negative responses have been documented in the HPI. ROS Other: All systems not noted in ROS Statement are negative. Past Medical History Past Medical History: GERD/Reflux Additional Past Medical History / Comment(s): Hx kidney stones. History of Any Multi-Drug Resistant Organisms: None Reported Past Surgical History: Back Surgery, Orthopedic Surgery Additional Past Surgical History / Comment(s): LUMBAR FUSION, right shoulder arthroscopy, right knee arthroscopy. Past Anesthesia/Blood Transfusion Reactions: No Reported Reaction, Postoperative Nausea & Vomiting (PONV) Past Psychological History: No Psychological Hx Reported Smoking Status: Never smoker Past Alcohol Use History: Rare Past Drug Use History: Marijuana - Past Family History Mother Family Medical History: No Reported History General Exam - General Exam Comments Initial Comments: GENERAL: Patient is well-developed and well-nourished. Patient is nontoxic and well- hydrated and is in mild distress. ENT: Neck is soft and supple. No significant lymphadenopathy is noted. Oropharynx is clear. Moist mucous membranes. Neck has full range of motion without eliciting any pain. EYES: The sclera were anicteric and conjunctiva were pink and moist. Extraocular mo vements were intact and pupils were equal round and reactive to light. Eyelids were unremarkable. PULMONARY: Unlabored respirations. Good breath sounds bilaterally. No audible rales rhonchi or wheezing was noted. CARDIOVASCULAR: There is a regular rate and rhythm without any murmurs gallops or rubs. ABDOMEN: Soft and nontender with normal bowel sounds. SKIN: Skin is clear with no lesions or rashes and otherwise unremarkable. NEUROLOGIC: Patient is alert and oriented x3. Cranial nerves II through XII are grossly intact. Motor and sensory are also intact. Normal speech, volume and content. Symmetrical smile. MUSCULOSKELETAL: Normal extremities with adequate strength and full range of motion. LYMPHATICS: No significant lymphadenopathy is noted PSYCHIATRIC: Normal psychiatric evaluation. Limitations: no limitations Course Vital Signs 04/14/23 15:03 Temperature 98.5 F Pulse Rate 104 H Respiratory 20 Rate Blood Pressure 125/85 O2 Sat by Pulse 97 Oximetry Medical Decision Making - Medical Decision Making EKG shows sinus tachycardia at 100 bpm ID interval 147 cardiac is a 70 QT interval 02/08/1990 QTC 386. Patient's EKG shows no ST segment elevation or depression. Was pt. sent in by a medical professional or institution (, PALLAVI, REGULATORY LAW SPECIALIST, urgent care, hospital, or [facility]...) When possible be specific @ -[No] Did you speak to anyone other than the patient for history (EMS, parent, family, police, friend...)? What history was obtained from this source @ -Daughter gives quite a bit of the history from the patient's physician. Did you review nursing and triage notes (agree or disagree)? Why? @ -[I reviewed and agree with nursing and triage notes] Were old charts reviewed (outside hosp., previous admission, EMS record, old EKG, old radiological studies, urgent care reports/EKG's, [facility] records)? Report findings @ -Are reviewed prior lab work and prior x-rays on this patient Differential Diagnosis (chest pain, altered mental status, abdominal pain women, abdominal pain men, vaginal bleeding, weakness, fever, dyspnea, syncope, headache, dizziness, GI bleed, back pain, seizure, CVA, palpatations, mental health, musculoskeletal)? @ -Differential Headache: Migraine, tension, cluster, carbon monoxide, central venous thrombosis, pension karma temporal arteritis, acute closure glaucoma, intercranial hemorrhage, mastoiditis, sinusitis, head injury, this is not meant to be an all-inclusive list. EKG interpreted by me (3pts min.). @ -[As above] X-rays interpreted by me (1pt min.). @ -[None done] CT interpreted by me (1pt min.). @ -[None done] U/S interpreted by me (1pt. min.). @ -[None done] What testing was considered but not performed or refused? (CT, X-rays, U/S, labs)? Why? @ -[None] What meds were considered but not given or refused? Why? @ -[None] Did you discuss the management of the patient with other professionals (professionals i.e. , PA, REGULATORY LAW SPECIALIST, lab, RT, psych nurse, social group worker, supervisor of operations, teacher, science and operations officer, watch case polisher)? Give summary @ -Dr. Santo he agreed to admit the patient Was smoking cessation discussed for >3mins.? @ -[No] Was critical care preformed (if so, how long)? @ -[No] Were there social determinants of health that impacted care today? How? (Homelessness, low income, unemployed, alcoholism, drug addiction, transportation, low edu. Level, literacy, decrease access to med. care, correction, rehab)? @ -[No] Was there de-escalation of care discussed even if they declined (Discuss DNR or withdrawal of care, Hospice)? DNR status @ -[No] What co-morbidities impacted this encounter? (DM, HTN, Smoking, COPD, CAD, Cancer, CVA, ARF, Chemo, Hep., AIDS, mental health diagnosis, sleep apnea, morbid obesity)? @ -[None] Was patient admitted / discharged? Hospital course, mention meds given and route , prescriptions, significant lab abnormalities, going to OR and other pertinent info. @ -Patient had a mass versus a consolidated pneumonia on the x-ray I started the patient antibiotics I spoke with and she agreed to admit the patient I consult infectious disease also, consulted pulmonology Undiagnosed new problem with uncertain prognosis? @ -[No] Drug Therapy requiring intensive monitoring for toxicity (Heparin, Nitro, Insulin, Cardizem)? @ -[No] Were any procedures done? @ -[No] Diagnosis/symptom? @ -Pneumonia Acute, or Chronic, or Acute on Chronic? @ -Acute Uncomplicated (without systemic symptoms) or Complicated (systemic symptoms)? @ -Complicated Side effects of treatment? @ -[No] Exacerbation, Progression, or Severe Exacerbation? @ -[No] Poses a threat to life or bodily function? How? (Chest pain, [place], [place], pneumonia, PE, COPD, DKA, ARF, appy, cholecystitis, CVA, Diverticulitis, Homicidal, Suicidal, threat to staff... and all critical care pts) @ -Yes This can lead to sepsis and end organ dysfunction - Lab Data Result diagrams: 04/14/23 16:09 04/14/23 16:09 Lab Results 04/14/23 04/14/23 04/14/23 Range/Units 16:09 16:09 16:09 WBC 14.1 H (3.8-10.6) k/uL RBC 4.03 L (4.30-5.90) m/uL Hgb 12.3 L (13.0-17.5) gm/dL Hct 36.7 L (39.0-53.0) % MCV 90.9 (80.0-100.0) fL MCH 30.4 (25.0-35.0) pg MCHC 33.5 (31.0-37.0) g/dL RDW 12.5 (11.5-15.5) % Plt Count 338 (150-450) k/uL MPV 8.3 Neutrophils % 83 % Lymphocytes % 8 % Monocytes % 6 % Eosinophils % 1 % Basophils % 0 % Neutrophils # 11.8 H (1.3-7.7) k/uL Lymphocytes # 1.2 (1.0-4.8) k/uL Monocytes # 0.8 (0-1.0) k/uL Eosinophils # 0.2 (0-0.7) k/uL Basophils # 0.0 (0-0.2) k/uL Sodium 138 (137-145) mmol/L Potassium 3.6 (3.5-5.1) mmol/L Chloride 100 (98-107) mmol/L Carbon Dioxide 25 (22-30) mmol/L Anion Gap 13 mmol/L BUN 16 (9-20) mg/dL Creatinine 1.15 (0.66-1.25) mg/dL Est GFR (CKD-EPI)AfAm 85 (>60 ml/min/1.73 sqM) Est GFR (CKD-EPI)NonAf 73 (>60 ml/min/1.73 sqM) Glucose 96 (74-99) mg/dL Plasma Lactic Acid Jean-Pierre 1.0 (0.7-2.0) mmol/L Calcium 8.9 (8.4-10.2) mg/dL Total Bilirubin 0.8 (0.2-1.3) mg/dL AST 25 (17-59) U/L ALT 24 (4-49) U/L Alkaline Phosphatase 89 (38-126) U/L Total Protein 6.9 (6.3-8.2) g/dL Albumin 3.8 (3.5-5.0) g/dL Disposition Clinical Impression: Pneumonia Disposition: ADMITTED IP TO THIS HOSP Referrals: Ramón Santo DO [Primary Care Provider] - 1-2 days Time of Disposition: 19:09
[2023-04-14] MEDS ORDERED: cefTRIAXone IN SWFI 1,000 MG/10 ML SYRINGE IVP STA (15:56)
[2023-04-14] MEDS: SODIUM CHLORIDE 0.9% 500 ML 500 ML IV SCH ×2 (16:33→17:34)
[2023-04-14 16:41] LABS: Basophils % (A) 0 %; Eosinophils # (A) 0.2 k/uL (0-0.7); Eosinophils % (A) 1 %; HCT 36.7 % (39.0-53.0); HGB 12.3 gm/dL (13.0-17.5); Lymphocytes # (A) 1.2 k/uL (1.0-4.8); Lymphocytes % (A) 8 %; MCH 30.4 pg (25.0-35.0); MCHC 33.5 g/dL (31.0-37.0); MCV 90.9 fL (80.0-100.0); Mean Platelet Volume 8.3; Monocytes # (A) 0.8 k/uL (0-1.0); Monocytes % (A) 6 %; Neutrophils # (A) 11.8 k/uL (1.3-7.7); Neutrophils % (A) 83 %; Platelet Count 338 k/uL (150-450); RBC 4.03 m/uL (4.30-5.90); RDW 12.5 % (11.5-15.5); WBC 14.1 k/uL (3.8-10.6)
[2023-04-14 17:01] LABS: Albumin 3.8 g/dL (3.5-5.0); Calcium 8.9 mg/dL (8.4-10.2); Potassium 3.6 mmol/L (3.5-5.1); Total Bilirubin 0.8 mg/dL (0.2-1.3); Total Protein 6.9 g/dL (6.3-8.2)
[2023-04-14] MEDS ORDERED: AZITHROMYCIN 500 MG in SODIUM CHLORIDE 0.9% 250 ML IVPB STA (19:10)
[2023-04-14] MEDS ORDERED: PNEUMONIA PROTOCOL UTILIZED 1 EACH MISC PO PRN (19:10)
[2023-04-15] MEDS ORDERED: ALBUTEROL NEBULIZED 2.5 MG/3 ML INHALATION PRN (00:01)
[2023-04-15] MEDS ORDERED: BENZONATATE 100 MG CAP PO STA (00:03)
[2023-04-15] MEDS ORDERED: BENZOCAINE/MENTHOL LOZENG 1 EACH LOZENGE MUCOUS MEM PRN (00:15)
--- NOTE | 2023-04-15 02:31 | P.CNPUL ---
History of Present Illness Consult date: 04/15/23 Requesting physician: Dixon Ospina Reason for consult: pneumonia Chief complaint: Chest pain and shortness of breath History of present illness: I am seeing this patient in new consultation today 04/15/2023 on the general medical floor for community-acquired pneumonia. Patient is a 52-year-old male with limited past medical history, who originally presented to the emergency room on April 12 with chest pain, and was diagnosed with community acquired pneumonia. His PCP is Dr. Ramón Santo. The patient was referred to Dr. Artis and treated on an outpatient basis with azithromycin. The patient did go to the office to see Dr. Artis yesterday, and a follow-up chest x-ray showed wors ening of the patient's right middle lobe consolidation. He was sent to the emergency room for a follow-up chest CT which showed a suspicious 6.6 cm right middle lobe masslike consolidation that was felt to be worrisome for neoplasm along with a slightly enlarged right tracheal bronchial lymph node. The patient's chest x-ray findings showed significant worsening over the last 24-48 hours. This is accompanied by some infectious symptoms and leukocytosis, thought to favor community-acquired pneumonia overr neoplasm; however, malignancy cannot be completely excluded at this time. Patient reports subjective fevers, chest pain, and some is scant hemoptysis. He does have persistent nonproductive cough. He denies any recent unintended weight loss. He does not smoke tobacco, but admits to marijuana smoking. He is currently resting in bed, on room air, in no acute distress. CBC on arrival showed some leukocytosis with a WBC count of 14.1, hemoglobin 12.3, hematocrit 37, platelets 338. BMP was essentially unremarkable. Patient is currently on a combination of azithromycin and ceftriaxone for community-acquired pneumonia. He appears nontoxic. Vital signs are stable. Review of Systems REVIEW OF SYSTEMS: CONSTITUTIONAL: Denies any recent significant weight loss or weight gain. EYES: Denies change in vision. EARS, NOSE, MOUTH, THROAT: Denies headaches, denies sore throat. CARDIOVASCULAR: Denies radiating chest pain, palpitations or syncopal episodes. RESPIRATORY: See HPI GASTROINTESTINAL: Denies change in appetite, abdominal pain, nausea and vomiting, or diarrhea GENITOURINARY: Denies hematuria, denies infections. MUSKULOSKELETAL: Denies pain, denies swelling. INTEGUMENTARY: Denies rash, denies eczema. NEUROLOGICAL: Denies recent memory loss, no recent seizure activity. PSYCHIATRIC: Denies anxiety, denies depression. HEMATOLOGIC/LYMPHATIC: Denies anemia, denies enlarged lymph node Past Medical History Past Medical History: GERD/Reflux Additional Past Medical History / Comment(s): Hx kidney stones. History of Any Multi-Drug Resistant Organisms: None Reported Past Surgical History: Back Surgery, Orthopedic Surgery Additional Past Surgical History / Comment(s): LUMBAR FUSION, right shoulder arthroscopy, right knee arthroscopy, R bicep tear Past Anesthesia/Blood Transfusion Reactions: No Reported Reaction, Postoperative Nausea & Vomiting (PONV) Past Psychological History: No Psychological Hx Reported Smoking Status: Never smoker Past Alcohol Use History: Rare Past Drug Use History: Marijuana Additional Drug Use History / Comment(s): Occasional Marijuana use. Aware no use 24 hrs prior to procedure. - Past Family History Mother Family Medical History: No Reported History Medications and Allergies Home Medications Medication Instructions Recorded Confirmed Type Pantoprazole Sodium [Protonix] 40 mg PO QAM 03/29/19 04/14/23 History Azithromycin [Zithromax Z Pack] 1 tab PO DIRECTED #6 tab 04/12/23 04/14/23 Rx Benzonatate [Tessalon Perle] 100 mg PO TID PRN #24 capsule 04/12/23 04/14/23 Rx Albuterol Nebulized [Ventolin 2.5 mg INHALATION RT-Q6H 04/14/23 04/14/23 History Nebulized] Allergies Allergy/AdvReac Type Severity Reaction Status Date / Time No Known Allergies Allergy Verified 04/14/23 17:00 Physical Exam Vitals: Vital Signs Temp Pulse Pulse Resp BP BP Pulse Ox 04/15/23 00:22 76 04/15/23 00:14 72 04/14/23 20:00 97.9 F 96 16 135/70 98 04/14/23 19:58 98 16 126/80 96 04/14/23 15:03 98.5 F 104 H 20 125/85 97 Intake and Output 04/14/23 04/14/23 04/15/23 14:59 22:59 06:59 Other: Voiding Method Toilet Weight 91.172 kg GENERAL EXAM: Alert, 52-year-old white male , comfortable in no apparent distress. HEAD: Normocephalic and atraumatic EYES: Normal reaction of pupils, equal size. NOSE: Clear with pink turbinates. THROAT: No erythema or exudates. NECK: No masses, no JVD. CHEST: No chest wall deformity. LUNGS: Equal air entry with no crackles, wheeze, rhonchi or dullness. On room air. No conversational dyspnea or accessory muscle use.. CVS: S1 and S2 normal with no audible murmur, regular rhythm. No extra heart sounds ABDOMEN: No hepatosplenomegaly, active bowel sounds, no guarding or rigidity. SPINE: No scoliosis or deformity SKIN: No rashes CENTRAL NERVOUS SYSTEM: No focal deficits, tone is normal in all 4 extremities. EXTREMITIES: There is no peripheral edema, clubbing, or cyanosis. Peripheral pulses are intact. Results - Laboratory Findings CBC and BMP: 04/14/23 16:09 04/14/23 16:09 Abnormal lab findings: Abnormal Labs 04/14/23 16:09 WBC 14.1 H RBC 4.03 L Hgb 12.3 L Hct 36.7 L Neutrophils # 11.8 H - Diagnostic Findings Chest x-ray: image reviewed CT scan - chest: image reviewed Assessment and Plan Assessment: Community acquired pneumonia, follow-up chest CT shows a suspicious 6.6 cm right middle lobe masslike consolidation that was felt to be worrisome for neoplasm along with a slightly enlarged right tracheal bronchial lymph node. Patient's worsening findings on imaging over the last 24-48 hours and infectious-like symptoms favor a bacterial pneumonia over neoplasm, however, this cannot be excluded at this point GERD Never tobacco smoker, but admits to occasional marijuana use Plan: Patient's medications, labs, chest x-ray, chest CT were reviewed On room air Nontoxic appearance When necessary albuterol Tessalon Perles for cough Continue antibiotics for community-acquired pneumonia We will continue to follow I have personally seen and examined the patient, performed the documentation and the assessment and plan as written. Number of minutes spent on the visit:20 Time with Patient: Greater than 30
--- NOTE | 2023-04-15 07:02 | XR ---
EXAMINATION TYPE: XR chest 2V DATE OF EXAM: 04/15/2023 COMPARISON: 04/14/2023 HISTORY: 52-year-old male pneumonia follow-up TECHNIQUE: PA and lateral views FINDINGS: Continued extensive opacification involving the right middle lobe. Mild hyperinflation. Small retroca rdiac lucency noted. No pleural effusion. IMPRESSION: Continued extensive right middle lobe pneumonia. Background COPD. Moderate sized hiatal hernia.
[2023-04-15] MEDS: BENZONATATE 100 MG CAP PO SCH ×3 (08:21→21:09)
[2023-04-15] MEDS: PANTOPRAZOLE 40 MG TABLET PO SCH (08:21)
[2023-04-15] MEDS: ALBUTEROL NEBULIZED 2.5 MG/3 ML INHALATION SCH ×3 (11:17→20:26)
[2023-04-15] MEDS: methylPREDNISolone SOD SUCCI 40 MG/ML 1 ML VIAL IV SCH ×3 (11:20→23:37)
[2023-04-15] MEDS: AZITHROMYCIN 500 MG TAB PO SCH (21:09)
--- NOTE | 2023-04-15 22:22 | P.CONS ---
History of Present Illness - Reason for Consult Consult date: 04/15/23 Pneumonia Requesting physician: Dixon Ospina - Chief Complaint Shortness of breath and chest pain x few days - History of Present Illness Patient is a 52-year-old male with a past medical history significant for gastroesophageal reflux and kidney stones presenting to the ER with increasing shortness of breath and chest pain, patient was recently diagnosed in the outpatient setting with pneumonia and has been treated with Zithromax patient is now presenting to the ER with increasing shortness of breath and chest pain that seem to have been getting worse and the patient also have a CT of the chest done in the outpatient setting region shows 6.6 cm right middle lobe mass or masslike consolidation worrisome for neoplasm and slightly larger right tracheobronchial lymph node for the patient was sent to the ER for admission and further work-up patient has been extremity pain to be more of a sharp pleuritic with deep breathing intensity was not tested almost 10 out of 10 on presentation to hospital however has improved with the pain medication patient also have a cough with moderate intensity and has been Sputum Patient on Presentation to the Hospital Was Afebrile Did Have a Low-Grade Fever of 99 F Today No Significant Hypoxia No Need for Supplemental Oxygen Did Have Atrial 14.1 with a Left Shift Kidney Function Has Been Normal Enzymes Are Normal Patient Was Started on Rocephin and Zithromax and Solu-Medrol Infectious Disease Was Consulted for Further Management of Antibiotic Therapy Review of Systems Positive point and negatives has been mentioned in the HPI, complete review of systems was performed and all other systems are negative Past Medical History Past Medical History: GERD/Reflux Additional Past Medical History / Comment(s): Hx kidney stones. History of Any Multi-Drug Resistant Organisms: None Reported Past Surgical History: Back Surgery, Orthopedic Surgery Additional Past Surgical History / Comment(s): LUMBAR FUSION, right shoulder arthroscopy, right knee arthroscopy, R bicep tear Past Anesthesia/Blood Transfusion Reactions: No Reported Reaction, Postoperative Nausea & Vomiting (PONV) Past Psychological History: No Psychological Hx Reported Smoking Status: Never smoker Past Alcohol Use History: Rare Past Drug Use History: Marijuana Additional Drug Use History / Comment(s): Occasional Marijuana use. Aware no use 24 hrs prior to procedure. - Past Family History Mother Family Medical History: No Reported History Medications and Allergies Home Medications Medication Instructions Recorded Confirmed Type Pantoprazole Sodium [Protonix] 40 mg PO QAM 03/29/19 04/14/23 History Azithromycin [Zithromax Z Pack] 1 tab PO DIRECTED #6 tab 04/12/23 04/14/23 Rx Benzonatate [Tessalon Perle] 100 mg PO TID PRN #24 capsule 04/12/23 04/14/23 Rx Albuterol Nebulized [Ventolin 2.5 mg INHALATION RT-Q6H 04/14/23 04/14/23 History Nebulized] Pantoprazole [Protonix] 40 mg PO QAM 30 Days #30 tab 04/17/23 Rx methylPREDNISolone Dose Pack 4 mg PO DIRECTED #21 tab 04/17/23 Rx [Medrol Dose Pack] Allergies Allergy/AdvReac Type Severity Reaction Status Date / Time No Known Allergies Allergy Verified 04/14/23 17:00 Physical Exam Vitals: Vital Signs Temp Pulse Pulse Resp BP BP Pulse Ox 04/15/23 11:29 76 04/15/23 11:17 78 04/15/23 08:00 98.4 F 84 16 132/81 97 04/15/23 07:32 99 04/15/23 02:00 98.0 F 62 18 125/76 95 04/15/23 00:22 76 04/15/23 00:14 72 04/14/23 20:00 97.9 F 96 16 135/70 98 04/14/23 19:58 98 16 126/80 96 04/14/23 15:03 98.5 F 104 H 20 125/85 97 Intake and Output 04/14/23 04/15/23 04/15/23 22:59 06:59 14:59 Other: Voiding Method Toilet Weight 91.172 kg GENERAL DESCRIPTION: Middle-aged male lying in bed, no distress. No tachypnea or accessory muscle of respiration use. HEENT: Shows Pallor , no scleral icterus. Oral mucous membrane is dry. No pharyngeal erythema or thrush NECK: Trachea central, no thyromegaly. LUNGS: Unlabored breathing. Coarse breath sounds no wheeze HEART: S1, S2, regular rate and rhythm. No loud murmur ABDOMEN: Soft, no tenderness , guarding or rigidity, no organomegaly EXTREMITIES: No edema of feet. SKIN: No rash, no masses palpable. NEUROLOGICAL: The patient is awake, alert, oriented x3, mood and affect normal. Results CBC & Chem 7: 04/14/23 16:09 04/14/23 16:09 Labs: Abnormal Lab Results - Last 24 Hours (Table) 04/14/23 Range/Units 16:09 WBC 14.1 H (3.8-10.6) k/uL RBC 4.03 L (4.30-5.90) m/uL Hgb 12.3 L (13.0-17.5) gm/dL Hct 36.7 L (39.0-53.0) % Neutrophils # 11.8 H (1.3-7.7) k/uL Assessment and Plan (1) Pneumonia Status: Acute Code(s): J18.9 - PNEUMONIA, UNSPECIFIED ORGANISM SNOMED Code(s): 706882752 Plan: 1patient was in the hospital with abnormal CT in this patient's symptom has been mostly shortness of breath and chest pain along with cough and sputum production low-grade fever with a right middle lobe almost like consolidation versus mass concerning for possible pneumonia underlying malignancy not entirely excluded 2-procalcitonin has been ordered results will be followed, also check a CRP and a sputum for Gram stain and culture 3-continue Rocephin and Zithromax We will follow on clinical condition and cultures to further adjust medication if needed Thank you for this consultation we will follow the patient along with you Time with Patient: Greater than 30
--- NOTE | 2023-04-15 22:57 | P.HPIM ---
History of Present Illness H&P Date: 04/15/23 Patient is a pleasant 52-year-old white male who was admitted to the hospital through the emergency department after seeing Dr. Artis last week. Patient was initially treated for community acquired pneumonia with Zithromax chest x- ray revealed a masslike consolidation in his right lung. On repeat examination was found to have bases a masslike density in the same area which had some sputum suspicion for neoplasm versus more complicated consolidation from pneumonia. Patient subsequently admitted for IV antibiotics and further workup including computed tomography scan. Patient admitted to fever cough in chest discomfort denies any sweats or weight loss or hemoptysis Review of Systems GENERAL: Patient admits to fever. Denies chills. EYES: Denies blurred vision. Denies vision changes. Denies eye pain. EARS, NOSE, MOUTH, & THROAT: Denies headache. Denies sore throat. Denies ear pain. RESPIRATORY: Patient admits to fail outpatient treatment for pneumonia should admits to shortness of breath cough dry no sputum production no hemoptysis. CARDIOVASCULAR: Denies chest pain or pressure. Denies palpitations. Denies arrhythmias. GASTROINTESTINAL: Denies abdominal pain. Denies diarrhea. Denies constipation. Denies nausea. Denies vomiting. Denies heartburn. Denies blood in the stool. GENITOURINARY: Denies urinary frequency. Denies burning. Denies dysuria. Denies cloudy urine. Denies blood in the urine. MUSCULOSKELETAL: Denies myalgias. Denies joint swelling. Denies decreased range of motion beyond patients baseline. INTEGUMENTARY: Denies pruitis. Denies rash. PSYCHIATRIC: Denies suicidal or homicial ideations. ENDOCRINE: Denies weight change. Denies polydipsia. Denies polyuria. HEMATOLOGIC: Denies bleeding disorders. Past Medical History Past Medical History: GERD/Reflux Additional Past Medical History / Comment(s): Hx kidney stones. History of Any Multi-Drug Resistant Organisms: None Reported Past Surgical History: Back Surgery, Orthopedic Surgery Additional Past Surgical History / Comment(s): LUMBAR FUSION, right shoulder arthroscopy, right knee arthroscopy, R bicep tear Past Anesthesia/Blood Transfusion Reactions: No Reported Reaction, Postoperative Nausea & Vomiting (PONV) Past Psychological History: No Psychological Hx Reported Smoking Status: Never smoker Past Alcohol Use History: Rare Past Drug Use History: Marijuana Additional Drug Use History / Comment(s): Occasional Marijuana use. Aware no use 24 hrs prior to procedure. - Past Family History Mother Family Medical History: No Reported History Medications and Allergies Home Medications Medication Instructions Recorded Confirmed Type Pantoprazole Sodium [Protonix] 40 mg PO QAM 03/29/19 04/14/23 History Azithromycin [Zithromax Z Pack] 1 tab PO DIRECTED #6 tab 04/12/23 04/14/23 Rx Benzonatate [Tessalon Perle] 100 mg PO TID PRN #24 capsule 04/12/23 04/14/23 Rx Albuterol Nebulized [Ventolin 2.5 mg INHALATION RT-Q6H 04/14/23 04/14/23 History Nebulized] Allergies Allergy/AdvReac Type Severity Reaction Status Date / Time No Known Allergies Allergy Verified 04/14/23 17:00 Physical Exam Osteopathic Statement: *. No significant issues noted on an osteopathic structural exam other than those noted in the History and Physical/Consult. Vitals: Vital Signs Temp Pulse Pulse Resp BP BP Pulse Ox 04/15/23 15:17 76 04/15/23 15:05 78 04/15/23 13:55 99.0 F 95 16 141/93 98 04/15/23 11:29 76 04/15/23 11:17 78 04/15/23 08:00 98.4 F 84 16 132/81 97 04/15/23 07:32 99 04/15/23 02:00 98.0 F 62 18 125/76 95 04/15/23 00:22 76 04/15/23 00:14 72 04/14/23 20:00 97.9 F 96 16 135/70 98 04/14/23 19:58 98 16 126/80 96 Intake and Output 04/15/23 04/15/23 04/15/23 06:59 14:59 22:59 Other: # Voids 3 GENERAL: This is a 52-year-old in no apparent distress at the time of examination. Pleasant and cooperative. HEENT: Head is atraumatic, normocephalic. Pupils are equal, round, and reactive to light. Sclerae anicteric. RESPIRATORY: Coarse breath sounds bilateral right greater than left.. CARDIOVASCULAR: Regular rate and rhythm. S1 and S2 noted. No systolic or diastolic murmur auscultated. No JVD noted. No S3 or S4 noted. GASTROINTESTINAL: No distention noted. Abdomen soft and round. Normal active bowel sounds auscultated x 4 quadrants. No pain or tenderness noted upon palpation. INTEGUMENTARY: No cyanosis. No jaundice. No rashes noted. No cellulitis noted. EXTREMITIES: 2+ peripheral pulses. No evidence of peripheral edema. No calf tenderness noted. NEUROLOGIC: Cranial nerves II-XII intact. PSYCHIATRIC: Awake, alert, and oriented X 3. Appropriate affect. Intact judgement and insight. Results CBC & Chem 7: 04/14/23 16:09 04/14/23 16:09 Labs: Abnormal Lab Results - Last 24 Hours (Table) 04/14/23 04/15/23 Range/Units 16:09 10:41 WBC 14.1 H (3.8-10.6) k/uL RBC 4.03 L (4.30-5.90) m/uL Hgb 12.3 L (13.0-17.5) gm/dL Hct 36.7 L (39.0-53.0) % Neutrophils # 11.8 H (1.3-7.7) k/uL Procalcitonin 0.26 H (0.02-0.09) ng/mL Microbiology - Last 24 Hours (Table) 04/15/23 00:25 Sputum Culture - Preliminary Sputum 04/15/23 00:25 Legionella Culture - Preliminary Sputum Thrombosis Risk Factor Assmnt - Choose All That Apply Each Factor Represents 1 point: Age 41-60 years, Serious lung disease incl. pneumonia (< 1month) Thrombosis Risk Factor Assessment Total Risk Factor Score: 2 Thrombosis Risk Factor Assessment Level: Low Risk Assessment and Plan (1) Pneumonia Current Visit: Yes Status: Acute Code(s): J18.9 - PNEUMONIA, UNSPECIFIED ORGANISM SNOMED Code(s): 461902506 (2) Community acquired pneumonia Current Visit: Yes Status: Acute Code(s): J18.9 - PNEUMONIA, UNSPECIFIED ORGANISM SNOMED Code(s): 491563690 (3) Lung mass Current Visit: Yes Status: Acute Code(s): R91.8 - OTHER NONSPECIFIC ABNORMAL FINDING OF LUNG FIELD SNOMED Code(s): 250679589 Plan: Plan to admit patient full antibiotics IV infectious disease and pulmonary consultations and progress fluid hydration computed tomography scan of the chest further recommendations pending workup
[2023-04-16] MEDS: ALBUTEROL NEBULIZED 2.5 MG/3 ML INHALATION SCH ×4 (08:59→20:43)
[2023-04-16] MEDS: methylPREDNISolone SOD SUCCI 40 MG/ML 1 ML VIAL IV SCH ×2 (09:11→16:04)
[2023-04-16] MEDS: BENZONATATE 100 MG CAP PO SCH ×3 (09:11→22:31)
[2023-04-16] MEDS: PANTOPRAZOLE 40 MG TABLET PO SCH (09:12)
--- NOTE | 2023-04-16 12:40 | P.PN ---
Subjective Progress Note Date: 04/16/23 Principal diagnosis: Pneumonia Patient is a 52-year-old male presenting to the hospital with increasing shortness of breath and cough along with the chest pain with evidence of right middle lung consultation/mass, patient had been diagnosed with pneumonia. on today's evaluation that is 04/16/2020, the patient is afebrile patient is breathing more comfortably currently on room air showed chest pain has decreased in intensity of the cough is also decreased in intensity no nausea no vomiting no abdominal pain and no diarrhea Objective - Vital Signs Vital signs: Vital Signs Temp 97.5 F L 04/16/23 07:02 Pulse 72 04/16/23 09:09 Resp 14 04/16/23 07:02 BP 117/82 04/16/23 07:02 Pulse Ox 100 04/16/23 08:59 FiO2 Intake & Output 04/15/23 04/16/23 04/16/23 18:59 06:59 18:59 Intake Total 480 Balance 480 Intake: Oral 480 Other: # Voids 3 3 - Exam GENERAL DESCRIPTION: Middle-age male up in the chair in no distress RESPIRATORY SYSTEM: Unlabored breathing , decreased intensity breath sounds , no wheeze HEART: S1 S2 regular rate and rhythm , ABDOMEN: Soft , no tenderness - Labs CBC & Chem 7: 04/14/23 16:09 04/14/23 16:09 Labs: Abnormal Lab Results - Last 24 Hours (Table) 04/15/23 Range/Units 10:41 Procalcitonin 0.26 H (0.02-0.09) ng/mL Microbiology - Last 24 Hours (Table) 04/14/23 16:09 Blood Culture - Preliminary Blood 04/14/23 16:09 Blood Culture - Preliminary Blood 04/15/23 00:25 Gram Stain - Preliminary Sputum Sputum Culture - Preliminary 04/15/23 00:25 Legionella Culture - Preliminary Sputum Assessment and Plan (1) Pneumonia Current Visit: Yes Status: Acute Code(s): J18.9 - PNEUMONIA, UNSPECIFIED ORGANISM SNOMED Code(s): 034542520 Plan: 1patient was in the hospital with abnormal CT in this patient's symptom has been mostly shortness of breath and chest pain along with cough and sputum production low-grade fever with a right middle lobe almost like consolidation versus mass concerning for possible pneumonia underlying malignancy not entirely excluded 2-procalcitonin is mildly elevated to 0.26, CRP and a sputum for Gram stain and culture are currently pending 3-patient seemed on clinical improvement and will continue Rocephin and Zithromax Time with Patient: Less than 30
--- NOTE | 2023-04-16 14:08 | P.PN ---
Subjective Progress Note Date: 04/16/23 Principal diagnosis: Pneumonia. I am seeing this patient in new consultation today 04/15/2023 on the general medical floor for community-acquired pneumonia. Patient is a 52-year-old male with limited past medical history, who originally presented to the emergency room on April 12 with chest pain, and was diagnosed with community acquired pneumonia. His PCP is Dr. Ramón Santo. The patient was referred to Dr. Artis and treated on an outpatient basis with azithromycin. The patient did go to the office to see Dr. Artis yesterday, and a follow-up chest x-ray showed wors ening of the patient's right middle lobe consolidation. He was sent to the emergency room for a follow-up chest CT which showed a suspicious 6.6 cm right middle lobe masslike consolidation that was felt to be worrisome for neoplasm along with a slightly enlarged right tracheal bronchial lymph node. The patient's chest x-ray findings showed significant worsening over the last 24-48 hours. This is accompanied by some infectious symptoms and leukocytosis, thought to favor community-acquired pneumonia overr neoplasm; however, malignancy cannot be completely excluded at this time. Patient reports subjective fevers, chest pain, and some is scant hemoptysis. He does have persistent nonproductive cough. He denies any recent unintended weight loss. He does not smoke tobacco, but admits to marijuana smoking. He is currently resting in bed, on room air, in no acute distress. CBC on arrival showed some leukocytosis with a WBC count of 14.1, hemoglobin 12.3, hematocrit 37, platelets 338. BMP was essentially unremarkable. Patient is currently on a combination of azithromycin and ceftriaxone for community-acquired pneumonia. He appears nontoxic. Vital signs are stable. Progress note dated 04/16/2023. 52-year-old male seen today in room 452. His is in the room with him. He was admitted with a diagnosis of right-sided pneumonia. Clinically, he is feeling better. Still coughing, but not bringing up much or any phlegm. Overall, he has improved just overnight. In addition, his pro-calcitonin level was elevated, suggesting infection rather than malignancy. The patient continues on Rocephin, and azithromycin. We also gave the patient some corticosteroids and reading treatments. I told he might be able to be discharged in the morning. No new labs today. His Legionella antigen in the urine was negative. His pro-calcitonin level was 0.26. We will get a chest x- ray in the morning. Objective - Vital Signs Vital signs: Vital Signs Temp 97.5 F L 04/16/23 07:02 Pulse 68 04/16/23 11:48 Resp 14 04/16/23 07:02 BP 117/82 04/16/23 07:02 Pulse Ox 100 04/16/23 08:59 FiO2 Intake & Output 04/15/23 04/16/23 04/16/23 18:59 06:59 18:59 Intake Total 480 Balance 480 Intake: Oral 480 Other: # Voids 3 3 - Exam No acute distress, oriented 3. Currently on room air. No conversational d yspnea or use of accessory muscles. HEENT examination is grossly unremarkable. Neck supple. Full range of motion. No adenopathy thyromegaly or neck vein distention. Cardiovascular examination reveals regular rhythm rate. S1-S2 normal. No S3 or S4. No discernible murmur noted. Heart rate 68 bpm. Lungs reveal scattered rhonchi, particularly in the right lung. A few scattered crackles are noted. No distinct wheezes. The left lung is essentially clear. Saturations are excellent.. Abdomen soft bowel sounds are heard. No masses or tenderness. Extremities are intact. No cyanosis clubbing or edema. Skin is without rash or lesion. Neurologic examination is brief but nonfocal. - Labs CBC & Chem 7: 04/14/23 16:09 04/14/23 16:09 Labs: Abnormal Lab Results - Last 24 Hours (Table) 04/15/23 Range/Units 10:41 Procalcitonin 0.26 H (0.02-0.09) ng/mL Microbiology - Last 24 Hours (Table) 04/14/23 16:09 Blood Culture - Preliminary Blood 04/14/23 16:09 Blood Culture - Preliminary Blood 04/15/23 00:25 Gram Stain - Preliminary Sputum Sputum Culture - Preliminary 04/15/23 00:25 Legionella Culture - Preliminary Sputum Assessment and Plan Assessment: Community-acquired pneumonia. Gastroesophageal reflux disease. Lifelong nonsmoker. Plan: Plan dated 04/16/2023. The patient appears to be doing better. Clinically he feels better. He is on room air. Still has a bit of a cough, with minimal to no phlegm production. The patient's pro-calcitonin level was 0.26. He continues on Rocephin and azithromycin. He also continues on breathing treatments, and corticosteroids. We will continue to follow make recommendations along the way. Possible discharge tomorrow. We will order a chest x-ray for tomorrow. Time with Patient: Less than 30
--- NOTE | 2023-04-16 16:07 | P.PN ---
Subjective Progress Note Date: 04/16/23 Subjective 52-year-old was admitted with community-acquired pneumonia is doing better today appears afebrile patient's pro calcitonin was elevated which favors infection and he is improved with IV antibiotics and hydration continue to follow the patient's progress in another 24 hours Objective - Vital Signs Vital signs: Vital Signs Temp 97.5 F L 04/16/23 14:00 Pulse 72 04/16/23 15:44 Resp 13 04/16/23 14:00 BP 124/83 04/16/23 14:00 Pulse Ox 98 04/16/23 14:00 FiO2 Intake & Output 04/15/23 04/16/23 04/16/23 18:59 06:59 18:59 Intake Total 480 Balance 480 Intake: Oral 480 Other: # Voids 3 3 - Exam GENERAL: This is a 52-year-old in no apparent distress at the time of examination. Pleasant and cooperative. HEENT: Head is atraumatic, normocephalic. Pupils are equal, round, and reactive to light. Sclerae anicteric. RESPIRATORY: Coarse breath sounds bilateral right greater than left.. CARDIOVASCULAR: Regular rate and rhythm. S1 and S2 noted. No systolic or diastolic murmur auscultated. No JVD noted. No S3 or S4 noted. GASTROINTESTINAL: No distention noted. Abdomen soft and round. Normal active bowel sounds auscultated x 4 quadrants. No pain or tenderness noted upon palpation. INTEGUMENTARY: No cyanosis. No jaundice. No rashes noted. No cellulitis noted. EXTREMITIES: 2+ peripheral pulses. No evidence of peripheral edema. No calf tenderness noted. NEUROLOGIC: Cranial nerves II-XII intact. PSYCHIATRIC: Awake, alert, and oriented X 3. Appropriate affect. Intact judgement and insight. - Labs CBC & Chem 7: 04/14/23 16:09 04/14/23 16:09 Labs: Microbiology - Last 24 Hours (Table) 04/14/23 16:09 Blood Culture - Preliminary Blood 04/14/23 16:09 Blood Culture - Preliminary Blood 04/15/23 00:25 Gram Stain - Preliminary Sputum Sputum Culture - Preliminary 04/15/23 00:25 Legionella Culture - Preliminary Sputum Assessment and Plan (1) Pneumonia Current Visit: Yes Status: Acute Code(s): J18.9 - PNEUMONIA, UNSPECIFIED ORGANISM SNOMED Code(s): 467786847 (2) Community acquired pneumonia Current Visit: Yes Status: Acute Code(s): J18.9 - PNEUMONIA, UNSPECIFIED O RGANISM SNOMED Code(s): 651658124 (3) Lung mass Current Visit: Yes Status: Acute Code(s): R91.8 - OTHER NONSPECIFIC ABNORMAL FINDING OF LUNG FIELD SNOMED Code(s): 504147857 Plan: Continue to observe and treat for community-acquired pneumonia. If remains stable possibly discharge in the next 24-48 hours per pulmonary
[2023-04-16] MEDS: AZITHROMYCIN 500 MG TAB PO SCH (22:31)
[2023-04-17] MEDS: methylPREDNISolone SOD SUCCI 40 MG/ML 1 ML VIAL IV SCH ×2 (01:34→08:00)
--- NOTE | 2023-04-17 06:16 | XR ---
EXAMINATION TYPE: XR chest 1V portable DATE OF EXAM: 04/17/2023 CLINICAL HISTORY: Difficulty breathing and pneumonia progress study. TECHNIQUE: Single AP portable upright view of the chest is obtained. COMPARISON: Chest x-ray from 2 days earlier FINDINGS: Persistent medial basilar or right middle lobe mass and/or masslike consolidation. Left farzana ng remains clear. Cardiac silhouette size stable within normal limits. Osseous structures are intact. IMPRESSION: Stable right middle lobe mass or less likely masslike consolidation. No new acute infiltr ate. Follow-up advised.
[2023-04-17 08:19] VITALS: BP 129/80; RESP 17; TEMP 97.7
[2023-04-17] MEDS: ALBUTEROL NEBULIZED 2.5 MG/3 ML INHALATION SCH ×2 (08:24→12:04)
[2023-04-17] MEDS: BENZONATATE 100 MG CAP PO SCH (09:03)
[2023-04-17] MEDS: PANTOPRAZOLE 40 MG TABLET PO SCH (09:03)
--- NOTE | 2023-04-17 11:56 | P.PN ---
Subjective Progress Note Date: 04/17/23 I am seeing this patient in new consultation today 04/15/2023 on the general medical floor for community-acquired pneumonia. Patient is a 52-year-old male with limited past medical history, who originally presented to the emergency room on April 12 with chest pain, and was diagnosed with community acquired pneumonia. His PCP is Dr. Ramón Santo. The patient was referred to Dr. Artis and treated on an outpatient basis with azithromycin. The patient did go to the office to see Dr. Artis yesterday, and a follow-up chest x-ray showed worsening of the patient's right middle lobe consolidation. He was sent to the emergency room for a follow-up chest CT which showed a suspicious 6.6 cm right middle lobe masslike consolidation that was felt to be worrisome for neoplasm along with a slightly enlarged right tracheal bronchial lymph node. The patient's chest x-ray findings showed significant worsening over the last 24-48 hours. This is accompanied by some infectious symptoms and leukocytosis, thought to favor community-acquired pneumonia overr neoplasm; however, malignancy cannot be completely excluded at this time. Patient reports subjective fevers, chest pain, and some is scant hemoptysis. He does have persistent nonproductive cough. He denies any recent unintended weight loss. He does not smoke tobacco, but admits to marijuana smoking. He is currently resting in bed, on room air, in no acute distress. CBC on arrival showed some leukocytosis with a WBC count of 14.1, hemoglobin 12.3, hematocrit 37, platelets 338. BMP was essentially unremarkable. Patient is currently on a combination of azithromycin and ceftriaxone for community-acquired pneumonia. He appears nontoxic. Vital signs are stable. Progress note dated 04/16/2023. 52-year-old male seen today in room 452. His is in the room with him. He was admitted with a diagnosis of right-sided pneumonia. Clinically, he is feeling better. Still coughing, but not bringing up much or any phlegm. Overall, he has improved just overnight. In addition, his pro-calcitonin level was elevated, suggesting infection rather than malignancy. The patient continues on Rocephin, and azithromycin. We also gave the patient some corticosteroids and reading treatments. I told he might be able to be discharged in the morning. No new labs today. His Legionella antigen in the urine was negative. His pro-calcitonin level was 0.26. We will get a chest x- ray in the morning. The patient is seen today 04/17/2023 in follow-up on the regular medical floor. He is currently sitting up in a chair at the bedside. Awake and alert in no acute distress. Feeling better today compared to yesterday. Much less cough an d congestion. Maintaining good O2 saturations in the 90s on room air. He's been afebrile. Hemodynamically stable. He is continued on ceftriaxone, Tessalon Perles, IV Solu-Medrol. Completed azithromycin. Objective - Vital Signs Vital signs: Vital Signs Temp 97.7 F 04/17/23 07:13 Pulse 82 04/17/23 08:36 Resp 17 04/17/23 07:13 BP 129/80 04/17/23 07:13 Pulse Ox 99 04/17/23 08:26 FiO2 Intake & Output 04/16/23 04/17/23 04/17/23 18:59 06:59 18:59 Intake Total 1080 500 Balance 1080 500 Intake: Oral 1080 500 Other: # Voids 8 # Bowel Movements 1 - Exam GENERAL EXAM: Alert, very pleasant 52-year-old male patient, on room air, comfortable in no apparent distress. HEAD: Normocephalic. EYES: Normal reaction of pupils, equal size. NOSE: Clear with pink turbinates. THROAT: No erythema or exudates. NECK: No masses, no JVD. CHEST: No chest wall deformity. LUNGS: Equal air entry with few scattered rhonchi. CVS: S1 and S2 normal with no audible murmur, regular rhythm. ABDOMEN: No hepatosplenomegaly, normal bowel sounds, no guarding or rigidity. SPINE: No scoliosis or deformity SKIN: No rashes CENTRAL NERVOUS SYSTEM: No focal deficits, tone is normal in all 4 extremities. EXTREMITIES: There is no peripheral edema. No clubbing, no cyanosis. Peripheral pulses are intact. - Labs CBC & Chem 7: 04/14/23 16:09 04/14/23 16:09 Labs: Microbiology - Last 24 Hours (Table) 04/15/23 00:25 Gram Stain - Final Sputum Sputum Culture - Final 04/14/23 16:09 Blood Culture - Preliminary Blood 04/14/23 16:09 Blood Culture - Preliminary Blood Assessment and Plan Assessment: Community-acquired pneumonia. Gastroesophageal reflux disease. Lifelong nonsmoker. Plan: The patient was seen and evaluated Chest x-ray and medications reviewed Cleared for discharge from the pulmonary standpoint Complete a course of Levaquin, previously prescribed Complete a Medrol Dosepak Follow-up in our office early next week I have personally seen and examined the patient, performed the documentation and the assessment and plan as written. Number of minutes spent on the visit: 10.
[2023-04-17 12:06] VITALS: PULSE 84
[2023-04-18] MEDS ORDERED: methylPREDNISolone 4 MG TAB TAPER PO SCH (09:00)
--- NOTE | 2023-04-21 13:12 | P.PN ---
Subjective Progress Note Date: 04/17/23 Principal diagnosis: Pneumonia Patient is a 52-year-old male presenting to the hospital with increasing shortness of breath and cough along with the chest pain with evidence of right middle lung consultation/mass, patient had been diagnosed with pneumonia. on today's evaluation that is 04/17/2023, the patient remains to be afebrile patient is breathing more comfortably on room air, the patient denies having any chest pain the patient cough is also decreased in intensity no nausea no vomiting no abdominal pain and no diarrhea Objective - Vital Signs Vital signs: Vital Signs Temp 97.7 F 04/17/23 07:13 Pulse 82 04/17/23 08:36 Resp 17 04/17/23 07:13 BP 129/80 04/17/23 07:13 Pulse Ox 99 04/17/23 08:26 FiO2 Intake & Output 04/16/23 04/17/23 04/17/23 18:59 06:59 18:59 Intake Total 1080 500 Balance 1080 500 Intake: Oral 1080 500 Other: # Voids 8 # Bowel Movements 1 - Exam Middle-age male up in the chair in no distress Decreased breath sound the bases no wheeze 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 - Labs CBC & Chem 7: 04/14/23 16:09 04/14/23 16:09 Labs: Microbiology - Last 24 Hours (Table) 04/14/23 16:09 Blood Culture - Preliminary Blood 04/14/23 16:09 Blood Culture - Preliminary Blood 04/15/23 00:25 Gram Stain - Preliminary Sputum Sputum Culture - Preliminary Assessment and Plan (1) Pneumonia Status: Acute Code(s): J18.9 - PNEUMONIA, UNSPECIFIED ORGANISM SNOMED Code(s): 678284232 Plan: This was a teleheath visit 1patient was in the hospital with abnormal CT in this patient's symptom has been mostly shortness of breath and chest pain along with cough and sputum production low-grade fever with a right middle lobe almost like consolidation versus mass concerning for possible pneumonia underlying malignancy not entirely excluded 2-procalcitonin is mildly elevated to 0.26, CRP and a sputum for Gram stain and culture are so far negative 3-patient has shown clinical improvement with Rocephin and Zithromax, plan to finish therapy with oral Ceftin and close outpatient follow-up Time with Patient: Less than 30
== END 2023-04-17 12:54 | disposition home or self-care (01) | DRG 195 ==
LOC: EC 14:36 → 4SSUR 19:10
PROVIDERS: ADMIT Family Medicine; ATTEND Family Medicine
DX: J18.9 Pneumonia, unspecified organism (principal); R00.0 Tachycardia, unspecified; K21.9 Gastro-esophageal reflux disease without esophagitis; Z28.310 Unvaccinated for COVID-19; Z98.1 Arthrodesis status; Z79.51 Long term (current) use of inhaled steroids; Z79.899 Other long term (current) drug therapy
CPT/HCPCS: 36415; 71045; 71046; 80053; 83605; 84145; 85025; 87040; 87070; 87205; 87449; 93005; 94640; 94760; 96365; 96375; 99285

== ENCOUNTER → 2023-04-14 | Outpatient (CLI) | payer MEDICAID ==
--- NOTE | 2023-04-14 12:12 | CT ---
EXAMINATION TYPE: CT chest w con DATE OF EXAM: 04/14/2023 COMPARISON: NONE HISTORY: chest pain, cough CT DLP: 454.8 mGycm. Automated Exposure Control for Dose Reduction was Utilized. TECHNIQUE: CT scan of the thorax is performed following with IV Contrast, patient injected with 100 mL of Isovue 300. FINDINGS: LUNGS: Suspicious right middle lobe mass or less likely masslike consolidation measures approximately 6.6 x 6.3 cm axial image 38. Some surrounding groundglass opacity is seen. There is tiny right ple ural effusion. Subtle central groundglass opacities bilaterally suggest mild edema. No pneumothorax s een bilaterally. The tracheobronchial tree is patent. MEDIASTINUM: There is slightly enlarged right tracheobronchial lymph node measuring 1.2 x 1.1 cm axia l image 23. No cardiomegaly or pericardial effusion is seen. Moderate sized hiatal hernia. OTHER: Simple appearing 2.9 cm thin-walled cyst anteriorly in the right kidney midpole level axial im age 67. IMPRESSION: Suspicious 6.6 cm right middle lobe mass or masslike consolidation worrisome for neoplasm . Suspicious slightly enlarged right tracheobronchial lymph node. Further investigation with bronchos copy and/or PET/CT is advised.
== END | disposition home or self-care (01) ==
LOC: RADCTMAIN 11:30
PROVIDERS: ATTEND Internal Medicine Critical Care Medicine
DX: J18.1 Lobar pneumonia, unspecified organism (principal); R59.0 Localized enlarged lymph nodes
CPT/HCPCS: 71260; 36415; Q9967

== ENCOUNTER → 2023-05-05 | Outpatient (CLI) | payer MEDICAID ==
--- NOTE | 2023-05-06 10:01 | CT ---
EXAMINATION TYPE: CT chest w con DATE OF EXAM: 05/05/2023 COMPARISON: 04/14/2023 HISTORY: recent hospitlization for bacterial pneumonia. CT DLP: 424.40 mGycm Automated exposure control for dose reduction was used. TECHNIQUE: CT scan of the chest is performed with IV Contrast, patient injected with 100 mL of Isovue 300. MIP Images are created on CT scanner and reviewed. 3D reconstructed images are created on an independent workstation and reviewed. FINDINGS: LUNGS: There is a 2.8 x 2.0 cm subsegmental area of consolidation which is reduced in size previously measuring 5.5 x 3.9 cm. There are scattered groundglass changes seen involving the left lower lobe a nd right perihilar upper lobe are similar to prior exam. Underlying mild emphysematous change with no pneumothorax or pleural effusion MEDIASTINUM: There are no greater than 1 cm hilar or mediastinal lymph nodes. No pericardial effusi on is seen. OTHER: Simple appearing right renal cyst and findings suggestive of tendinosis. There is a moderate- sized hiatal hernia. Trace of gynecomastia. Hypertrophic and degenerative changes of the spine IMPRESSION: 1. Improving right lower lobe area of consolidation measuring 2.8 x 2 cm and previously measuring 5.5 x 3.9 cm. May represent improving pneumonia. The patient is not symptomatic for pneumonia then a PET scan would be recommended to exclude underlying residual neoplasm. 2. There is persistent groundglass and tree-in-bud pattern involving left lower lobe and right perihi lar region suspicious for pneumonia or pneumonitis. Atypical or mycobacteria pneumonia in the differe ntial diagnosis.
== END | disposition home or self-care (01) ==
LOC: RADCTMAIN 16:16
PROVIDERS: ATTEND Internal Medicine Critical Care Medicine
DX: J15.9 Unspecified bacterial pneumonia (principal); R91.8 Other nonspecific abnormal finding of lung field
CPT/HCPCS: 71260; Q9967

== ENCOUNTER → 2024-06-01 | Outpatient (CLI) | payer MEDICAID ==
--- NOTE | 2024-06-01 12:50 | XR ---
EXAMINATION TYPE: XR abdomen 2V DATE OF EXAM: 06/01/2024 12:37 PM CLINICAL INDICATION:Male, 53 years old with history of R06.00 DYSPNEA PAIN; H COMPARISON: 12/16/2018 TECHNIQUE: Two views of the abdomen were obtained. FINDINGS: The bowel gas pattern is nonspecific without dilated loops of small or large bowel. There i s no evidence for organomegaly or pneumoperitoneum. The osseous structures are intact. No abnormal calcifications are present. Fecal material and gas are demonstrated throughout the colon and rectum. Degeneration changes of the spine with fixation hardware in place. Hardware appears intact. Moderate amount of stool throughout the right colon. IMPRESSION: Nonspecific bowel gas pattern without radiographic evidence for acute process.
--- NOTE | 2024-06-01 12:52 | XR ---
EXAMINATION TYPE: XR chest 2V DATE OF EXAM: 06/01/2024 12:38 PM CLINICAL INDICATION:Male, 53 years old with history of Pain, trauma, dyspnea; [facility] COMPARISON: 04/30/2023 TECHNIQUE: XR chest 2V Frontal view of the chest. FINDINGS: Lungs/Pleura: There is no evidence of pleural effusion, focal consolidation, or pneumothorax. Pulmonary vascularity: Unremarkable. Heart/mediastinum: Cardiomediastinal silhouette is unremarkable. Musculoskeletal: No acute osseous pathology. IMPRESSION: No acute cardiopulmonary disease/process.
--- NOTE | 2024-06-01 12:59 | XR ---
EXAMINATION TYPE: XR ribs RT DATE OF EXAM: 06/01/2024 12:37 PM CLINICAL INDICATION:Male, 53 years old with history of R06.00 DYSPNEA PAIN; H COMPARISON: 06/01/2024 TECHNIQUE: XR ribs RT; Frontal and oblique views of the ribs with frontal chest radiograph. FINDINGS: The ribs have a normal appearance. No evidence of fracture. Overall, the lungs are clear. The cardiac silhouette is normal in size. The remaining osseous structures are intact. IMPRESSION: No acute osseous pathology.
== END | disposition home or self-care (01) ==
LOC: RADXRMAIN 11:53
PROVIDERS: ATTEND Family Medicine
DX: R06.00 Dyspnea, unspecified (principal)
CPT/HCPCS: 71046; 74019

== ENCOUNTER → 2025-01-30 | Outpatient (CLI) | payer MEDICAID ==
--- NOTE | 2025-01-30 12:28 | CA ---
Transthoracic Echo Report Name: Da Queen Age: 54 Gender: M : 1970 Exam Date: 01/30/2025 11:17 Exam Location: [place] [facility] Ht (in): 74 Wt (lb): 205 Ordering Physician: Ramón Santo DO Attending/Referring Phys: Ramón Santo DO Livestock [employer]cker Kailee Echavarria, RDMACIE Procedure CPT: Indications: I20.9 ANGINA PECTORIS, R07.9 CHEST PAIN Cardiac Hx: Technical Quality: Good Contrast 1: Total Dose (mL): Contrast 2: Total Dose (mL): MEASUREMENTS (Male / Female) Normal Values 2D ECHO LV Diastolic Diameter PLAX 5.2 cm 4.2 - 5.9 / 3.9 - 5.3 cm LV Systolic Diameter PLAX 3.0 cm IVS Diastolic Thickness 1.2 cm 0.6 - 1.0 / 0.6 - 0.9 cm LVPW Diastolic Thickness 1.2 cm 0.6 - 1.0 / 0.6 - 0.9 cm LV Relative Wall Thickness 0.4 RV Internal Dim ED PLAX 3.0 cm LA Systolic Diameter LX 3.7 cm 3.0 - 4.0 / 2.7 - 3.8 cm LV Diastolic Volume MOD BP 87.3 cm??? 67 - 155 / 56 - 104 cm??? LV Systolic Volume MOD BP 24.9 cm??? 22 - 58 / 19 - 49 cm??? LV Ejection Fraction MOD BP 71.5 % >= 55 % LV Cardiac Index MOD BP 1803.9 cm???/min???m??? LV Diastolic Volume MOD 4C 88.9 cm??? LV Systolic Volume MOD 4C 25.1 cm??? LV Ejection Fraction MOD 4C 71.8 % LV Cardiac Index MOD 4C 1847.2 cm???/min???m??? LV Diastolic Length 4C 8.3 cm LV Systolic Length 4C 6.5 cm LV Diastolic Volume MOD 2C 85.7 cm??? LV Systolic Volume MOD 2C 24.7 cm??? LV Ejection Fraction MOD 2C 71.2 % LV Cardiac Index MOD 2C 1763.4 cm???/min???m??? LV Diastolic Length 2C 8.2 cm LV Systolic Length 2C 6.6 cm LA Volume 59.2 cm??? 18 - 58 / 22 - 52 cm??? LA Volume Index 26.8 cm???/m??? 16 - 28 cm???/m??? M-MODE Aortic Root Diameter MM 3.4 cm LA Systolic Diameter MM 2.8 cm LA Ao Ratio MM 0.8 AV Cusp Separation MM 1.9 cm DOPPLER MV Area PHT 3.4 cm??? Mitral E Point Velocity 64.4 cm/s Mitral A Point Velocity 91.7 cm/s Mitral E to A Ratio 0.7 MV Deceleration Time 224.0 ms TR Peak Velocity 211.8 cm/s TR Peak Gradient 18.0 mmHg FINDINGS Left Ventricle Left ventricular ejection fraction is estimated at 55-60%. Mildly increased septal wall thickness. Normal left ventricular systolic function with no obvious regional wall motion abnormalities. Left ventricular cavity size normal. Right Ventricle Normal right ventricular size. Right ventricular systolic pressure within normal limits. Right Atrium Right atrial dilatation. Left Atrium Mildly increased left atrial volume. Mildly increased left atrial area. Mitral Valve Structurally normal mitral valve. Trace mitral regurgitation. No mitral stenosis. Aortic Valve Trileaflet aortic valve. No aortic valve stenosis or regurgitation. Tricuspid Valve Structurally normal tricuspid valve. Mild tricuspid regurgitation. No tricuspid stenosis. Pulmonic Valve Structurally normal pulmonic valve. Trace pulmonic regurgitation. No pulmonic stenosis. Pericardium No pericardial or pleural effusion. Aorta Normal size aortic root and proximal ascending aorta. CONCLUSIONS Left ventricular ejection fraction 55-60% Mildly increased left ventricular wall thickness Trace mitral regurgitation Mild tricuspid regurgitation Previewed by: Dr. Grant Montiel DO (Electronically Signed) Final Date: 30 January 2025 12:28
== END | disposition home or self-care (01) ==
LOC: RADECHMAIN 10:42
PROVIDERS: ATTEND Family Medicine
DX: I08.1 Rheumatic disorders of both mitral and tricuspid valves (principal); I20.9 Angina pectoris, unspecified
CPT/HCPCS: 93306

== ENCOUNTER → 2025-01-31 | Outpatient (CLI) | payer MEDICAID ==
--- NOTE | 2025-01-31 13:09 | CA ---
Exercise Stress Test Report Name: Da Queen Exam Date: 01/31/2025 09:33 Exam Location: [facility] Ht (in): 74 Wt (lb): 210 BSA: 2.22 Ordering Phys: Ramón Santo DO Referring Phys: NATAN Technologist: Isaiah Tran Age: 54 Gender: M : 1970 Procedure CPT: Indications: R07.9 CHEST PAIN ICD-10 Codes: Patient History: Medications: Meds past 24 hrs: Pretest Chest Pain: STRESS TEST Yrn Protocol Exercise Duration (min:sec): 09:[address] Depressions (mm): 0 Angina Score: 0 Willoughby Score: 9 Resting HR (bpm): 78 Peak HR (bpm): 151 Resting BP (mmHg): 133 / 91 Peak BP (mmHg): 186 / 92 MPHR: 166 Target HR: 141 % MPHR: 91 METS: 10.3 Total Dose: Peak Dose: Atropine: Double Product: 79549 BP Response: Stress Termination: Reached target heart rate Stress Symptoms: No chest pain or symptoms Stress Summary: The patient's target heart rate was achieved, The hemodynamic response to exercise was normal ECG ANALYSIS Resting ECG: Sinus rhythm. Normal conduction. No arrhythmias. Normal repolarization. Stress ECG: No ECG evidence of ischemia with exercise. CONCLUSIONS Patient falls into low-risk group (DTS >= +5). This associates the patient with an annual CV mortality <= 0.5%. 1. Good exercise tolerance with no chest pain 2. Normal electrocardiographic response to exercise with no evidence of exercise induced ischemia Dr. Paolo Haynes MD (Electronically Signed) Final Date: 31 January 2025 13:08
== END | disposition home or self-care (01) ==
LOC: RADNMMAIN 09:03
PROVIDERS: ATTEND Family Medicine
DX: I20.9 Angina pectoris, unspecified (principal)
CPT/HCPCS: 93017

== ENCOUNTER 2025-02-08 09:10 | Day surgery (SDC) | payer MEDICAID ==
[2025-02-08 10:37] VITALS: TEMP 97
[2025-02-08 10:52] LABS: Glucose,Whole Blood 98 mg/dL (70-110)
[2025-02-08] MEDS: LACTATED RINGERS 1,000 ML IV SCH (10:53)
[2025-02-08] MEDS ORDERED: ONDANSETRON 4 MG/2 ML VIAL ONE (10:57)
[2025-02-08] MEDS ORDERED: PROPOFOL 10 MG/ML 20 ML VIAL IV ONE (10:57)
[2025-02-08] MEDS ORDERED: diphenhydrAMINE 50 MG/ML 1 ML VIAL ONE (10:57)
--- NOTE | 2025-02-08 11:20 | P.OP ---
Date of Procedure: 02/08/25 Preoperative Diagnosis: GERD Screening Postoperative Diagnosis: Gastritis, esophagitis, hiatal hernia Diverticulosis Procedure(s) Performed: EGD with biopsy Colonoscopy Anesthesia: MAC Surgeon: Christa Ledesma Pathology: other (Biopsies of duodenum, antrum, esophagus) Condition: stable Disposition: same day Indications for Procedure: 54-year-old male presents today for upper and lower endoscopy. He has history of reflux and has burning sensation in his chest. Further evaluation with upper endoscopy. Patient has never had colonoscopy and presents for screening colonoscopy. Denies any blood in his stool. No family history of colon cancer. Operative Findings: Esophagitis Gastritis Hiatal hernia Diverticula Description of Procedure: The patient was brought into the endoscopy suite and placed in left lateral decubitus position. Adequate sedation was achieved using conscious sedation. A bite-block was placed and an endoscope was placed in the oropharynx and advanced under endoscopic visualization. The endoscope was advanced through the esophagus into the stomach, through the gastric antrum and in through the pylorus. The third portion of duodenum was visualized. The endoscope was then slowly withdrawn. The first portion of duodenum was noted to have mild inflammatory changes. Biopsies were taken. The antrum was noted to have mild inflammatory changes. Biopsies were taken. The gastric body distended normally and the gastric folds appeared normal and flattened with insufflation. A retroflexed view of the fundus and GE junction revealed mild hiatal hernia. GE junction appeared to have esophagitis type changes and biopsies were taken. The rest of the esophagus appeared endoscopically normal. Excess air was removed and the scope was withdrawn. Digital rectal exam was performed and mild internal hemorrhoids were palpated. An endoscope was then placed in the rectum and advanced to the cecum as identified by landmarks including the appendiceal orifice and the ileocecal valve. The prep was good. The colonoscope was then slowly withdrawn, examining for any mucosal abnormalities. The cecum, ascending, transverse, descending and sigmoid colon were visualized adequately. There were no large neoplastic lesion s noted throughout the colon. No obvious polyps noted throughout the colon. Moderate amount of diverticulosis noted scattered throughout the colon. Hemostasis was maintained. Retroflexion was performed in the rectum and mild internal hemorrhoid. Excess air was removed, the colonoscope withdrawn and the procedure terminated. The patient was then transferred to the recovery unit in stable condition. Repeat colonoscopy should be performed in 10 years.
[2025-02-08 12:01] VITALS: BP 133/93; PULSE 57; RESP 16
== END 2025-02-08 12:08 | disposition home or self-care (01) ==
LOC: ORWHC2ENDO 09:10
PROVIDERS: ATTEND Surgery
DX: Z12.11 Encounter for screening for malignant neoplasm of colon (principal); K29.50 Unspecified chronic gastritis without bleeding; K21.00 Gastro-esophageal reflux disease with esophagitis, without bleeding; K44.9 Diaphragmatic hernia without obstruction or gangrene; K57.30 Diverticulosis of large intestine without perforation or abscess without bleeding; K64.8 Other hemorrhoids; N20.0 Calculus of kidney; F12.90 Cannabis use, unspecified, uncomplicated; J01.90 Acute sinusitis, unspecified; Z79.899 Other long term (current) drug therapy
CPT/HCPCS: 88305; 45378; 43239; J1200; J2405; J2704